=== PATIENT | female | born 1945 | race Caucasian/White ===

== ENCOUNTER 2017-07-11 10:13 | Inpatient (IN) | payer MEDICARE, OTHER ==
[~2017-07-11 10:13] MED LIST: SUCCINYLCHOLINE CHLORIDE INJ 200 MG/10 ML VIAL ONE
[2017-07-11] MEDS ORDERED: METHYLPREDNISOLONE INJ 125 MG/2 ML SDV IV ONE (10:20)
[2017-07-11] MEDS ORDERED: MAGNESIUM SULFATE/D5W 1 GM/100 ML RTUPB IV ONE (10:20)
[2017-07-11] MEDS ORDERED: IPRATROPIUM/ALBUTEROL 0.5-2.5 MG/3 ML AMPUL NEB ONE (10:20)
[2017-07-11 10:44] LABS: ABSOLUTE BASOPHILS # (AUTO) 0.1 10^3/uL (0.0-0.2); ABSOLUTE LYMPHOCYTES (AUTO) 1.5 10^3/uL (0.5-4.7); ABSOLUTE MONOCYTES (AUTO) 0.7 10^3/uL (0.1-1.4); ABSOLUTE NEUT (AUTO) 10.7 10^3/uL (1.7-8.2); BASOPHILS % (AUTO) 0.8 % (0-2); EOSINOPHILS % (AUTO) 0.1 % (0-6); HEMATOCRIT 37.6 % (36.0-47.0); HEMOGLOBIN 11.6 g/dL (12.0-15.5); LYMPHOCYTES % (AUTO) 11.3 % (13-45); MEAN CORPUSCULAR HEMOGLOBIN 24.1 pg (27.0-33.4); MEAN CORPUSCULAR HGB CONC 30.8 g/dL (32.0-36.0); MEAN CORPUSCULAR VOLUME 79 fl (80-97); MONOCYTES % (AUTO) 5.4 % (3-13); PLATELET COUNT 339 10^3/uL (150-450); RED BLOOD COUNT 4.79 10^6/uL (3.72-5.28); SEGMENTED NEUTROPHILS % (AUTO) 82.4 % (42-78); TOTAL CELLS COUNTED % (AUTO) 100 %
[2017-07-11 10:46] LABS: VENOUS BLOOD BASE EXCESS 2.4 mmol/L; VENOUS BLOOD HCO3 33.3 mmol/L (20-32)
[2017-07-11 10:49] LABS: VENOUS BLOOD PCO2 91.1 mmHg (35-63); VENOUS BLOOD PH 7.18 (7.30-7.42)
[2017-07-11 11:05] LABS: ALANINE AMINOTRANSFERASE 39 U/L (9-52); ALBUMIN 3.7 g/dL (3.5-5.0); ALKALINE PHOSPHATASE 82 U/L (38-126); ANION GAP 9 (5-19); ASPARTATE AMINO TRANSFERASE 37 U/L (14-36); BILIRUBIN,DIRECT 0.5 mg/dL (0.0-0.4); BILIRUBIN,TOTAL 0.5 mg/dL (0.2-1.3); BLOOD UREA NITROGEN 46 mg/dL (7-20); CALCIUM 9.2 mg/dL (8.4-10.2); CARBON DIOXIDE 28 mmol/L (22-30); CHLORIDE 98 mmol/L (98-107); CREATINE KINASE 73 U/L (30-135); GLUCOSE 369 mg/dL (75-110); LIPASE 76.7 U/L (23-300); MAGNESIUM 2.2 mg/dL (1.6-2.3); POTASSIUM 5.4 mmol/L (3.6-5.0); SODIUM 134.9 mmol/L (137-145); TOTAL PROTEIN 6.4 g/dL (6.3-8.2)
[2017-07-11 11:18] LABS: CREATINE KINASE MB 1.17 ng/mL (<4.55)
[2017-07-11 11:20] LABS: TROPONIN I 0.057 ng/mL
[2017-07-11 11:43] LABS: A TYPE INFLUENZA AG NEGATIVE (NEGATIVE); B INFLUENZA AG NEGATIVE (NEGATIVE)
--- NOTE | 2017-07-11 12:16 | RADIOLOGY REPORT (SQ) ---
EXAM DESCRIPTION: CTA CHEST COMPLETED DATE/TIME: 07/11/2017 11:59 am REASON FOR STUDY: sob COMPARISON: None. TECHNIQUE: CT scan of the chest performed using helical scanning technique with dynamic intravenous contrast injection. Images reviewed with lung, soft tissue and bone windows. Reconstructed coronal and sagittal MPR images reviewed. Additional 3 dimensional post-processing performed to develop Maximal Intensity Projection images (AK P). All images stored on PACS. All CT scanners at this facility use dose modulation, iterative reconstruction, and/or weight based d osing when appropriate to reduce radiation dose to as low as reasonably achievable (ALARA). [facility]: Dose Right [facility]: CareDose [facility]: Dose Right [facility]: Teradose 4D [facility]: [email or web address] CONTRAST TYPE AND DOSE: contrast/concentration: Isovue 370.00 mg/ml; Total Contrast Delivered: 82.0 ml; Total Saline Delivered: 80.0 ml Contrast bolus optimized for the pulmonary arteries. Not diagnostic for the aorta. RENAL FUNCTION: Creatinine 1.07 RADIATION DOSE: CT Rad equipment meets quality standard of care and radiation dose reduction techniq ues were employed. CTDIvol: 3.3 - 34.4 mGy. DLP: 1270 mGy-cm. . LIMITATIONS: None. FINDINGS: LUNGS AND PLEURA: No masses, infiltrates, pneumothorax. No pleural effusions, calcificati ons. AORTA AND GREAT VESSELS: No aneurysm. Contrast bolus not optimized for the aorta. HEART: No pericardial effusion. No significant coronary artery calcifications. PULMONARY ARTERIES: No emboli visualized in the main pulmonary arteries or the segmental branches. HILAR AND MEDIASTINAL STRUCTURES: No identified masses or abnormal nodes. HARDWARE: None in the chest. UPPER ABDOMEN: No significant findings. Limited exam. THYROID AND OTHER SOFT TISSUES: No masses. No adenopathy. BONES: No acute or significant finding. 3D MIPS: Confirm above findings. OTHER: No other significant finding. IMPRESSION: NORMAL CTA OF THE CHEST. NO PULMONARY EMBOLI. COMMENT: Quality ID # [id number]: Final reports with documentation of one or more dose reduction techniques (e.g., Automated exposure control, adjustment of the mA and/or kV according to patient size, use of iterative reconstruction technique) TECHNICAL DOCUMENTATION: JOB ID: [id number] [employer]- All Rights Reserved
[2017-07-11 12:24] LABS: APPEARANCE,URINE SLIGHTLY-CLOUDY; BILIRUBIN,URINE NEGATIVE (NEGATIVE); COLOR,URINE YELLOW; GLUCOSE, URINE 150 mg/dL (NEGATIVE); KETONES,URINE NEGATIVE (NEGATIVE); LEUKOCYTE ESTERASE,URINE SMALL (NEGATIVE); NITRITE,URINE NEGATIVE (NEGATIVE); PROTEIN,URINE >=500 mg/dL (NEGATIVE); URINE SPECIFIC GRAVITY 1.024; UROBILINOGEN,URINE NEGATIVE mg/dL (<2.0)
--- NOTE | 2017-07-11 12:38 | ER Document Report ---
ED General - General Chief Complaint: Shortness Of Breath Stated Complaint: SHORTNESS OF BREATH Time Seen by Provider: 07/11/17 10:19 TRAVEL OUTSIDE OF THE [place] IN LAST 30 DAYS: No - HPI Patient complains to provider of: Shortness of breath Notes: Patient coming in for evaluation of shortness of breath. Patient has a history of chronic smoking patient according EMS called EMS out day prior to arrival refuse treatment at the breathing treatments. Patient presented to the continue to smoke coming in today for increased respiratory distress. Patient also recently was on a cruise returning to the area patient denies any fevers or chills productive cough. Patient is on CPAP upon my evaluation we did monitor the patient briefly after taking patient off CPAP however continues to have increased accessory muscle use therefore transitioned to BiPAP. Patient denies any pain - Related Data Allergies/Adverse Reactions: hydrogen peroxide [Hydrogen Peroxide] Allergy (Verified 07/11/17 10:54) bee sting Allergy (Uncoded 07/11/17 10:54) Past Medical History - Social History Smoking Status: Current Every Day Smoker Family History: Reviewed & Not Pertinent Patient has suicidal ideation: No Patient has homicidal ideation: No - Past Medical History Cardiac Medical History: Reports: Hx Atrial Fibrillation, Hx Hypercholesterolemia, Hx Hypertension Pulmonary Medical History: Reports: Hx Asthma Endocrine Medical History: Reports: Hx Diabetes Mellitus Type 2 Renal/ Medical History: Denies: Hx Peritoneal Dialysis Past Surgical History: Reports: Hx Appendectomy, Hx Cholecystectomy, Hx Hysterectomy Review of Systems - Review of Systems Constitutional: No symptoms reported EENT: No symptoms reported Cardiovascular: No symptoms reported Respiratory: Short of breath, Wheezing Gastrointestinal: No symptoms reported Genitourinary: No symptoms reported Female Genitourinary: No symptoms reported Musculoskeletal: No symptoms reported Skin: No symptoms reported Hematologic/Lymphatic: No symptoms reported Neurological/Psychological: No symptoms reported Physical Exam - Vital signs Vitals: Pulse Ox 92 07/11/17 10:16 Interpretation: Normal, Hypoxic, Tachypneic - General General appearance: Alert, Other - Mild to moderate distress In distress: Moderate - HEENT Head: Normocephalic, Atraumatic Eyes: Normal Conjunctiva: Normal Cornea: Normal Pupils: PERRL - Respiratory Respiratory status: Respiratory distress Chest status: Nontender Breath sounds: Rhonchi, Wheezing Chest palpation: Normal - Cardiovascular Rhythm: Regular Heart sounds: Normal auscultation Murmur: No - Abdominal Inspection: Normal Distension: No distension Bowel sounds: Normal Tenderness: Nontender Organomegaly: No organomegaly - Back Back: Normal, Nontender - Extremities General upper extremity: Normal inspection, Nontender, Normal color, Normal ROM , Normal temperature General lower extremity: Normal inspection, Nontender, Normal color, Normal ROM , Normal temperature, Normal weight bearing. No: Marisela's sign - Neurological Neuro grossly intact: Yes Cognition: Normal Orientation: AAOx4 Elisabeth Coma Scale Eye Opening: Spontaneous Elisabeth Coma Scale Verbal: Oriented Elisabeth Coma Scale Motor: Obeys Commands [place] Coma Scale Total: 15 Speech: Normal Motor strength normal: LUE, RUE, LLE, RLE Sensory: Normal - Psychological Associated symptoms: Normal affect, Normal mood - Skin Skin Temperature: Warm Skin Moisture: Dry Skin Color: Normal Course - Re-evaluation Re-evalutation: 07/11/17 15:41 Patient better with BiPAP. Patient's initial VBG showed acute respiratory distress with hypercapnia. Continue with BiPAP continue nebulized treatments with steroids. Patient case was discussed with hospitalist will admit for further evaluation - Vital Signs Vital signs: Temp Pulse Resp BP Pulse Ox 98.7 F 17 126/69 H 94 07/11/17 10:53 07/11/17 14:41 07/11/17 14:41 07/11/17 14:41 - Laboratory Result Diagrams: 07/11/17 10:25 07/11/17 10:25 Laboratory results interpreted by me: 07/11/17 07/11/17 07/11/17 10:25 10:25 10:25 WBC 13.0 H Hgb 11.6 L MCV 79 L MCH 24.1 L MCHC 30.8 L RDW 16.0 H Seg Neutrophils % 82.4 H Lymphocytes % 11.3 L Absolute Neutrophils 10.7 H VBG pH VBG pCO2 VBG HCO3 Sodium 134.9 L Potassium 5.4 H BUN 46 H Est GFR (Non-Af Amer) 50 L Glucose 369 H Direct Bilirubin 0.5 H AST 37 H NT-Pro-B Natriuret Pep 6320 H Urine Protein Urine Glucose (UA) Ur Leukocyte Esterase 07/11/17 07/11/17 10:25 12:09 WBC Hgb MCV MCH MCHC RDW Seg Neutrophils % Lymphocytes % Absolute Neutrophils VBG pH 7.18 L* VBG pCO2 91.1 H* VBG HCO3 33.3 H Sodium Potassium BUN Est GFR (Non-Af Amer) Glucose Direct Bilirubin AST NT-Pro-B Natriuret Pep Urine Protein >=500 H Urine Glucose (UA) 150 H Ur Leukocyte Esterase SMALL H Critical Care Note - Critical Care Note Total time excluding time spent on procedures (mins): 35 Comments: Multiple evaluation patient respiratory distress requiring BiPAP Discharge - Discharge Clinical Impression: COPD with exacerbation, Acute respiratory failure with hypoxia and hypercapnia , Right leg swelling Atrial fibrillation Qualifiers: Atrial fibrillation type: chronic Qualified Code(s): I48.2 - Chronic atrial fibrillation Condition: Fair Disposition: ADMITTED INPATIENT Admitting Provider: Hospitalist - [facility] Unit Admitted: [facility]
--- NOTE | 2017-07-11 13:14 | EKG REPORT ---
SEVERITY:- ABNORMAL ECG - ATRIAL FIBRILLATION, V-RATE 63-95 BORDERLINE R WAVE PROGRESSION, ANTERIOR LEADS NONSPECIFIC T ABNORMALITIES, DIFFUSE LEADS : Confirmed by: Mary Ellen Bejarano MD 11-Jul-2017 13:13:56
[2017-07-11 13:52] LABS: ARTERIAL BLOOD BASE EXCESS 1.3 mmol/L; ARTERIAL BLOOD H2CO3 3.01 mmol/L (1.05-1.35); ARTERIAL BLOOD HCO3 33.2 mmol/L (20-26); ARTERIAL BLOOD O2 SATURATION 89.4 % (94-98); ARTERIAL BLOOD PO2 75.4 mmHg (80-100); ARTERIAL BLOOD TOTAL CO2 36.3 mmol/L (21-25)
[2017-07-11 13:57] LABS: ARTERIAL BLOOD PCO2 100.1 mmHg (35-45); ARTERIAL BLOOD PH 7.14 (7.35-7.45)
[2017-07-11] MEDS ORDERED: ACETAMINOPHEN 325 MG TABLET PO PRN (14:02)
[2017-07-11] MEDS ORDERED: ONDANSETRON HCL INJ/PF 4 MG/2 ML SDV IV PRN (14:02)
[2017-07-11] MEDS ORDERED: GLUCAGON,HUMAN RECOMB 1 MG INJ IM PRN (14:15)
[2017-07-11] MEDS ORDERED: DEXTROSE 50%-WATER 25 GM/50 ML DISP.SYRIN IV PRN ×2 (14:15)
[2017-07-11] MEDS ORDERED: DEXTROSE 40% GEL 15 GM TUBE PO PRN ×2 (14:15)
--- NOTE | 2017-07-11 14:36 | PDOC H&P ---
History of Present Illness Admission Date/PCP: 07/11/17 13:02 LAMIN SAGASTUME NP Patient complains of: Confusion and Acute Respiratory Failure History of Present Illness: MEGAN RODRIGUEZ is a 72 year old female present with complaint of confusion and difficulty breathing. Not able to obtain history from patient due to patient being unresponsive. Patient was still sternal rub and would move arms and open eyes. The third time patient with sternal rub patient stated that it hurt. Patient's ER nurse was contacted immediately to find out if this is how patient has been the whole entire time and nurse stated that patient had been drowsy from the beginning however not as drowsy as this. Stat ABG was ordered and ER physician was contacted in regards to patient's condition. Patient will be admitted to ICU for close observation with pulmonary consult placed will adjust patient's BiPAP settings to see if CO2 will trend down if not patient most likely will require intubation. Unable to obtain history of presenting illness from patient or family. Past Medical History Past Medical History: Obtained by ER Cardiac Medical History: Reports: Atrial Fibrillation, Hyperlipidema, Hypertension Pulmonary Medical History: Reports: Asthma Endocrine Medical History: Reports: Diabetes Mellitus Type 2 Past Surgical History Past Surgical History: Obtained by ER Past Surgical History: Reports: Appendectomy, Cholecystectomy, Hysterectomy Social History Information Source: Emergency Med Personnel Smoking Status: Current Every Day Smoker Frequency of Alcohol Use: Rare Hx Recreational Drug Use: No Drugs: None Hx Prescription Drug Abuse: No - Advance Directive Resuscitation Status: Full Code Family History Family History: Reviewed & Not Pertinent Parental Family History Reviewed: No - Pt would only respond to painful stimuli. Children Family History Reviewed: Unknown Sibling(s) Family History Reviewed.: Unknown Medication/Allergy Home Medications: [facility] [place] Vitamin 1 tab PO DAILY 09/04/15 RX: Albuterol Sulfate [Proair Respiclick] 2 puff IH Q4H PRN 09/04/15 RX: Aspirin 81 mg PO DAILY 09/04/15 RX: Diltiazem HCl [Diltiazem 24Hr ER] 360 mg PO DAILY 09/04/15 RX: Docusate Sodium [Colace 100 mg Capsule] 100 mg PO QHS 09/04/15 RX: Epinephrine [Epipen 2-Robb] 0.3 mg IM ASDIR PRN 09/04/15 RX: Glucosamine/MSM/Chondroitin A [Glucosamine Chondroit MSM Tab] 1 each PO BID 09/04/15 RX: Loratadine [Claritin 10 mg Tablet] 10 mg PO DAILY 09/04/15 RX: Magnesium Oxide [Mag-Ox 400 mg Tablet] 500 mg PO DAILY 09/04/15 RX: [place]-3 Fatty Acids/Fish Oil [Fish Oil Conc 1,000 mg Softgel] 1 each PO BID 09/04/15 RX: Sitagliptin Phos/Metformin HCl [Janumet 50-1,000 mg Tablet] 1 each PO BID RX: Ubidecarenone [Coenzyme Q10] 100 mg PO DAILY 09/04/15 Atorvastatin Calcium [Lipitor 40 mg Tablet] 40 mg PO QHS 07/11/17 Calcium Carbonate/Vitamin D3 [Calcium 500 + Vit D 200 Caplet] 1 tab-cap PO DAILY 07/11/17 Chlorthalidone [Chlorthalidone 25 mg Tablet] 1 tab PO DAILY 07/11/17 Cholecalciferol (Vitamin D3) [Vitamin D3 1000 Unit Tablet] 1,000 unit PO DAILY 07/11/17 Insulin Glargine,Hum.rec.anlog [Lantus] 44 unit SQ DAILY 07/11/17 Multivit,Calc,Mins/Folic Acid [One-A-Day Proactive 65 Plus Tb] 200 mcg PO DAILY 07/11/17 Allergies/Adverse Reactions: hydrogen peroxide [Hydrogen Peroxide] Allergy (Verified 07/11/17 10:54) bee sting Allergy (Uncoded 07/11/17 10:54) Review of Systems ROS unobtainable: Due to mental status Physical Exam Vital Signs: Temp Pulse Resp BP Pulse Ox 98.7 F 16 135/62 H 92 07/11/17 10:53 07/11/17 13:41 07/11/17 13:41 07/11/17 13:41 General appearance: PRESENT: disheveled, well-developed, well-nourished, other - BIPAP in place Head exam: PRESENT: atraumatic, normocephalic Eye exam: PRESENT: other - Pt would open eyes with painful stimuli. Ear exam: PRESENT: normal external ear exam Mouth exam: PRESENT: moist, tongue midline Neck exam: ABSENT: carotid bruit, JVD, lymphadenopathy, thyromegaly Respiratory exam: PRESENT: other - + prolonged exp phase, + wheezing, + BIPAP in place Cardiovascular exam: PRESENT: irregular rhythm, other - + right leg + 1 pitting edema. ABSENT: diastolic murmur, rubs, systolic murmur Pulses: PRESENT: normal dorsalis pedis pul Vascular exam: PRESENT: normal capillary refill GI/Abdominal exam: PRESENT: normal bowel sounds, soft. ABSENT: distended, guarding, mass, organolmegaly, rebound, tenderness Rectal exam: PRESENT: deferred Extremities exam: PRESENT: full ROM. ABSENT: calf tenderness, clubbing, pedal edema Neurological exam: PRESENT: other - Will respond to painful stimuli, Pt opened eyes and moved arms, and said stop. Skin exam: PRESENT: dry, intact, warm. ABSENT: cyanosis, rash Results Laboratory Results: 07/11/17 13:30 Carbonic Acid 3.01 H HCO3/H2CO3 Ratio 11:1 ABG pH 7.14 L* ABG pCO2 100.1 H* ABG pO2 75.4 L ABG HCO3 33.2 H ABG O2 Saturation 89.4 L ABG Base Excess 1.3 FiO2 55% Impressions: Chest/Abdomen CTA 07/11/17 10:19 IMPRESSION: NORMAL CTA OF THE CHEST. NO PULMONARY EMBOLI. Assessment & Plan - Diagnosis (1) Acute respiratory failure with hypoxia and hypercapnia Is this a current diagnosis for this admission?: Yes Plan: Patient at time of ER visit had an venous blood gas performed. Patient later had a ABG done which demonstrated respiratory acidosis with a CO2 of 100. Patient's BiPAP settings were adjusted and will recheck ABG in an hour. If no improvement will have patient intubated. Pulmonary has been consulted to assist with patient care. (2) COPD with exacerbation Is this a current diagnosis for this admission?: Yes Plan: We will place patient on steroids, breathing treatments, and Levaquin. We will have pulmonary evaluate patient as well. If patient's ABG does not improve we will have patient intubated. (3) CO2 narcosis Is this a current diagnosis for this admission?: Yes Plan: Patient on BiPAP settings have been readjusted if CO2 does not improve will intubate patient. (4) Hyponatremia Is this a current diagnosis for this admission?: Yes Plan: Most likely secondary to thiazide: We will hold thiazide. (5) Delirium Is this a current diagnosis for this admission?: Yes Plan: Secondary CO2 Narcosis: Patient BiPAP settings have been readjusted will check ABG in 1 hour. ABG has not improved will intubate patient. (6) Hyperkalemia Is this a current diagnosis for this admission?: Yes Plan: We will monitor no intervention required at this time will check BMP in a.m. (7) DM type 2 (diabetes mellitus, type 2) Qualifiers: Diabetes mellitus complication status: with hyperglycemia Is this a current diagnosis for this admission?: Yes Plan: We will place patient on sliding scale insulin. Will check hemoglobin A1c. (8) Atrial fibrillation Qualifiers: Atrial fibrillation type: chronic Qualified Code(s): I48.2 - Chronic atrial fibrillation Is this a current diagnosis for this admission?: Yes Plan: We will continue patient's diltiazem and aspirin. Will ask pharmacy to verify patient's medications due to patient not being on an oral anticoagulant. (9) Right leg swelling Plan: Ultrasound of right lower extremity pending. In the meantime we will place patient on DVT prophylaxis. If study demonstrates evidence of a DVT will place on treatment protocol. (10) Hyperlipidemia Is this a current diagnosis for this admission?: Yes Plan: We will continue statin (11) DVT prophylaxis Is this a current diagnosis for this admission?: Yes Plan: Heparin - Time Time Spent: 50 to 70 Minutes - We will place patient in ICU.
--- NOTE | 2017-07-11 16:01 | RADIOLOGY REPORT (SQ) ---
EXAM DESCRIPTION: VENOUS UNILATERAL LOWER COMPLETED DATE/TIME: 07/11/2017 3:48 pm REASON FOR STUDY: pain right leg COMPARISON: None. TECHNIQUE: Dynamic and static blackwood scale and color images acquired of the right leg venous system. S elected spectral images acquired with additional compression and augmentation maneuvers. The contrala teral common femoral vein and saphenofemoral junction were also imaged. Images stored on PACS. LIMITATIONS: None. FINDINGS: COMMON FEMORAL: Normal phasicity, compression and augmentation. No visualized echogenic ma terial on blackwood scale. No defects on color images. FEMORAL: Normal compression and augmentation. No visualized echogenic material on blackwood scale. No defe cts on color images. POPLITEAL: Normal compression, augmentation. No visualized echogenic material on blackwood scale. No defec ts on color images. CALF VESSELS: Normal compression, augmentation. No visualized echogenic material on blackwood scale. No de fects on color images. GSV and SSV: Normal compression, augmentation. No visualized echogenic material on blackwood scale. No def ects on color images. ANY DEEP VENOUS INSUFFICIENCY: No. ANY EVIDENCE OF POPLITEAL CYST: No. OTHER: No other significant finding. CONTRALATERAL COMMON FEMORAL VEIN AND SAPHENOFEMORAL JUNCTION: Normal phasicity, compression and augmentation. No visualized echogenic material on blackwood scale. No de fects on color images. IMPRESSION: NO EVIDENCE DVT OR SVT IN THE RIGHT LEG. COMMENT: Preliminary report was called by the technologist to the referring clinician's office at th e time of patient visit. TECHNICAL DOCUMENTATION: JOB ID: [id number] [employer]- All Rights Reserved
[2017-07-11] MEDS: IPRATROPIUM/ALBUTEROL 0.5-2.5 MG/3 ML AMPUL NEB SCH ×3 (16:20→23:39)
[2017-07-11 17:38] LABS: ARTERIAL BLOOD BASE EXCESS 1.9 mmol/L; ARTERIAL BLOOD H2CO3 2.68 mmol/L (1.05-1.35); ARTERIAL BLOOD HCO3 32.8 mmol/L (20-26); ARTERIAL BLOOD PO2 83.9 mmHg (80-100); ARTERIAL BLOOD TOTAL CO2 35.5 mmol/L (21-25)
[2017-07-11 17:43] LABS: ARTERIAL BLOOD PCO2 89.2 mmHg (35-45); ARTERIAL BLOOD PH 7.18 (7.35-7.45)
[2017-07-11] MEDS: METHYLPREDNISOLONE INJ 125 MG/2 ML SDV IV SCH (18:13)
[2017-07-11] MEDS: INSULIN REG, HUMAN 100 UNIT/ML 3 ML VIAL (PYX) SUBCUT PRN (18:25)
[2017-07-11 19:54] LABS: ARTERIAL BLOOD BASE EXCESS 2.8 mmol/L; ARTERIAL BLOOD H2CO3 2.79 mmol/L (1.05-1.35); ARTERIAL BLOOD HCO3 33.9 mmol/L (20-26); ARTERIAL BLOOD O2 SATURATION 94.2 % (94-98); ARTERIAL BLOOD PO2 90.8 mmHg (80-100); ARTERIAL BLOOD TOTAL CO2 36.8 mmol/L (21-25)
[2017-07-11 19:57] LABS: ARTERIAL BLOOD FIO2 60%
[2017-07-11 19:59] LABS: ARTERIAL BLOOD PH 7.18 (7.35-7.45)
[2017-07-11 20:00] LABS: ARTERIAL BLOOD PCO2 92.8 mmHg (35-45)
[2017-07-11] MEDS ORDERED: SUCCINYLCHOLINE CHLORIDE INJ 200 MG/10 ML VIAL IV ONE (20:19)
[2017-07-11] MEDS ORDERED: ETOMIDATE INJ/PF 20 MG/10 ML SDV IV ONE ×2 (20:19→20:22)
[2017-07-11] MEDS ORDERED: PROPOFOL 100 ML IV PRN (20:19)
[2017-07-11] MEDS ORDERED: PROPOFOL 100 ML IV ONE (20:21)
[2017-07-11] MEDS: PROPOFOL 100 ML IV PRN ×2 (22:29→23:13)
--- NOTE | 2017-07-11 22:59 | RADIOLOGY REPORT (SQ) ---
EXAM DESCRIPTION: CHEST SINGLE VIEW COMPLETED DATE/TIME: 07/11/2017 10:39 pm REASON FOR STUDY: post intubation COMPARISON: None. EXAM PARAMETERS: NUMBER OF VIEWS: One view. TECHNIQUE: Single frontal radiographic view of the chest acquired. RADIATION DOSE: NA LIMITATIONS: Multiple overlapping metallic leads on the upper mediastinum. FINDINGS: LUNGS AND PLEURA: No pneumothorax. Mild subsegmental atelectasis in the left lung base. No significant pleural effusion. MEDIASTINUM AND HILAR STRUCTURES: No masses. Contour normal. HEART AND VASCULAR STRUCTURES: Heart normal in size. Normal vasculature. BONES: No acute findings. HARDWARE: Endotracheal tube tip overlies the mid trachea, poorly localized due to overlapping metalli c leads on the upper mediastinum. Nasogastric catheter tip overlies the pyloric region of the stomac h. OTHER: No other significant finding. IMPRESSION: Endotracheal tube tip overlies the mid trachea, poorly localized due to overlapping meta llic leads on the upper mediastinum. Nasogastric catheter tip overlies the pyloric region of the sto mach. Mild subsegmental atelectasis in the left lung base. TECHNICAL DOCUMENTATION: JOB ID: [id number] [email or web address]- All Rights Reserved
--- NOTE | 2017-07-11 23:12 | ER Document Report ---
Doctor's Note Notes: 07/11/17 23:10 I was asked to intubate the patient as she had worsening respiratory failure with increasing hypercapnia. Patient was confused and cannot give me further consent. Using a glide scope on a single attempt, and 8.0 endotracheal tube was placed with direct visualization of the cords. Cuff inflated. Breath sounds were equal bilaterally. Good end-tidal CO2 color change. Follow-up x- ray difficult to interpret but appears to have good tube placement. There is left effusion/infiltrate noted. RSI was used which included etomidate 20 mg, succinylcholine 100 mg IV with continued sedation with propofol infusion..
[2017-07-12] MEDS ORDERED: INFLUENZA ADLT QUAD (36MOS+) 2017-18 VAC 0.5 ML SYR IM PRN (01:07)
[2017-07-12 01:10] LABS: ARTERIAL BLOOD BASE EXCESS 1.6 mmol/L; ARTERIAL BLOOD H2CO3 1.87 mmol/L (1.05-1.35); ARTERIAL BLOOD HCO3 29.3 mmol/L (20-26); ARTERIAL BLOOD O2 SATURATION 96.9 % (94-98); ARTERIAL BLOOD PCO2 62.1 mmHg (35-45); ARTERIAL BLOOD PH 7.29 (7.35-7.45); ARTERIAL BLOOD PO2 101.9 mmHg (80-100); ARTERIAL BLOOD TOTAL CO2 31.2 mmol/L (21-25)
[2017-07-12 01:11] LABS: ARTERIAL BLOOD FIO2 60%
[2017-07-12] MEDS: PANTOPRAZOLE SODIUM 40 MG VIAL IV SCH ×3 (01:20→22:25)
[2017-07-12] MEDS: HEPARIN SOD (PORCINE) 5,000 UNIT/ML 1 ML SYRINGE SUBCUT SCH ×4 (01:21→22:24)
[2017-07-12] MEDS: METHYLPREDNISOLONE INJ 125 MG/2 ML SDV IV SCH ×4 (01:21→17:35)
[2017-07-12] MEDS: ATORVASTATIN CALCIUM 40 MG TABLET PO SCH ×2 (01:21→22:24)
[2017-07-12] MEDS: PROPOFOL 100 ML IV PRN ×6 (02:22→20:43)
[2017-07-12 02:25] LABS: HEMATOCRIT 36.3 % (36.0-47.0); HEMOGLOBIN 11.2 g/dL (12.0-15.5); MEAN CORPUSCULAR HEMOGLOBIN 24.1 pg (27.0-33.4); MEAN CORPUSCULAR HGB CONC 30.8 g/dL (32.0-36.0); MEAN CORPUSCULAR VOLUME 78 fl (80-97); PLATELET COUNT 297 10^3/uL (150-450); RED BLOOD COUNT 4.64 10^6/uL (3.72-5.28); RED CELL DISTRIBUTION WIDTH 16.2 % (11.5-14.0); WHITE BLOOD COUNT 13.3 10^3/uL (4.0-10.5)
[2017-07-12 02:41] LABS: ALANINE AMINOTRANSFERASE 41 U/L (9-52); ALBUMIN 3.3 g/dL (3.5-5.0); ALKALINE PHOSPHATASE 83 U/L (38-126); ANION GAP 9 (5-19); ASPARTATE AMINO TRANSFERASE 24 U/L (14-36); BILIRUBIN,DIRECT 0.4 mg/dL (0.0-0.4); BILIRUBIN,TOTAL 0.4 mg/dL (0.2-1.3); BLOOD UREA NITROGEN 49 mg/dL (7-20); CALCIUM 8.8 mg/dL (8.4-10.2); CARBON DIOXIDE 26 mmol/L (22-30); CHLORIDE 100 mmol/L (98-107); GLUCOSE 371 mg/dL (75-110); POTASSIUM 5.5 mmol/L (3.6-5.0); SODIUM 135.2 mmol/L (137-145); TOTAL PROTEIN 5.8 g/dL (6.3-8.2)
[2017-07-12 03:01] LABS: ABSOLUTE LYMPHOCYTES# (MANUAL) 1.1 10^3/uL (0.5-4.7); ABSOLUTE MONOCYTES # (MANUAL) 0.7 10^3/uL (0.1-1.4); ABSOLUTE NEUTROPHILS# (MANUAL) 11.6 10^3/uL (1.7-8.2); BAND NEUTROPHILS % (MANUAL) 2 % (3-5); BASOPHILS % (MANUAL) 0 % (0-2); EOSINOPHILS % (MANUAL) 0 % (0-6); LYMPHOCYTES % (MANUAL) 8 % (13-45); MONOCYTES % (MANUAL) 5 % (3-13); SEGMENTED NEUTROPHILS % (MAN) 85 % (42-78); TOTAL CELLS COUNTED 100
[2017-07-12 03:02] LABS: ANISOCYTOSIS 1+; BURR CELLS SLIGHT; HYPOCHROMASIA SLIGHT; OVALOCYTES SLIGHT; POIKILOCYTOSIS SLIGHT; POLYCHROMASIA SLIGHT; TOXIC GRANULATION SLIGHT; TOXIC VACUOLATION PRESENT
[2017-07-12 03:03] LABS: PLATELET COMMENT ADEQUATE
[2017-07-12 03:12] LABS: FREE T4 (FREE THYROXINE) 1.18 ng/dL (0.78-2.19)
[2017-07-12 03:15] LABS: THYROID STIMULATING HORMONE 0.31 uIU/mL (0.47-4.68)
[2017-07-12] MEDS: IPRATROPIUM/ALBUTEROL 0.5-2.5 MG/3 ML AMPUL NEB SCH ×5 (04:23→19:45)
[2017-07-12] MEDS: NORMAL SALINE 1000 ML 1,000 ML IV PRN ×2 (04:46→13:20)
[2017-07-12] MEDS: INSULIN REG, HUMAN 100 UNIT/ML 3 ML VIAL (PYX) SUBCUT PRN ×2 (05:20→13:49)
[2017-07-12 06:29] LABS: ARTERIAL BLOOD BASE EXCESS 0 mmol/L; ARTERIAL BLOOD HCO3 27.2 mmol/L (20-26); ARTERIAL BLOOD O2 SATURATION 91.9 % (94-98); ARTERIAL BLOOD PCO2 56.6 mmHg (35-45); ARTERIAL BLOOD PO2 69.6 mmHg (80-100)
[2017-07-12 06:32] LABS: ARTERIAL BLOOD FIO2 45%
--- NOTE | 2017-07-12 06:49 | RADIOLOGY REPORT (SQ) ---
EXAM DESCRIPTION: CHEST SINGLE VIEW CLINICAL HISTORY: Pt intubated COMPARISON: 07/11/2017 FINDINGS: Single frontal view of the chest. Endotracheal tube with tip midway between the clavicles and malvin. NG tube with tip below the diaphragm. Cardiomegaly. Atherosclerotic calcification aortic arch. Low lung volumes. Minimal streaky basilar airspace opacity. Low lung volumes. No pneumothorax or pleural effusion. No new osseous abnormalities. Upper abdominal soft tissues are unremarkable. IMPRESSION: 1. No significant interval change.
--- NOTE | 2017-07-12 08:48 | EKG REPORT ---
SEVERITY:- ABNORMAL ECG - ATRIAL FIBRILLATION, V-RATE 64-109 CONSIDER ANTEROSEPTAL INFARCT NONSPECIFIC T ABNORMALITIES, INFERIOR LEADS : Confirmed by: Mary Ellen Bejarano MD 12-Jul-2017 08:47:00
[2017-07-12] MEDS: ASPIRIN 81 MG TABLET, CHEWABLE PO SCH (09:35)
[2017-07-12] MEDS: LEVOFLOXACIN 750 MG/D5W RTU 750 MG/150 ML RTUPB IV SCH (09:36)
[2017-07-12] MEDS ORDERED: (PENDING PHARMACY ID) (Diltiazem Hcl [Diltiazem 24hr Er] 360 MG) PO SCH (10:00)
[2017-07-12] MEDS ORDERED: DILTIAZEM HCL 180 MG CAPSULE.CR PO SCH (10:00)
[2017-07-12] MEDS ORDERED: DILTIAZEM HCL 60 MG TABLET NG ONE (13:00)
--- NOTE | 2017-07-12 17:42 | PDOC PROGRESS REPORT ---
Subjective Progress Note for:: 07/12/17 Subjective:: No new issues. Reason For Visit: CO2 NARCOSIS ACUTE COPD EXACERBATION Physical Exam Vital Signs: Temp Pulse Resp BP Pulse Ox 100.0 F 92 22 H 132/68 H 92 07/12/17 16:00 07/12/17 16:34 07/12/17 16:34 07/12/17 16:00 07/12/17 16:34 Intake & Output 07/11/17 07/12/17 07/13/17 06:59 06:59 06:59 Intake Total 1005 Output Total 950 625 Balance 55 -625 Weight 97.1 kg General appearance: PRESENT: no acute distress, other - sedated Head exam: PRESENT: atraumatic, normocephalic Eye exam: PRESENT: other - sedated. ABSENT: scleral icterus Ear exam: PRESENT: normal external ear exam Mouth exam: PRESENT: moist, tongue midline Neck exam: ABSENT: carotid bruit, JVD, lymphadenopathy, thyromegaly Respiratory exam: PRESENT: wheezes. ABSENT: rales, rhonchi Cardiovascular exam: PRESENT: RRR. ABSENT: diastolic murmur, rubs, systolic murmur Pulses: PRESENT: normal dorsalis pedis pul Vascular exam: PRESENT: normal capillary refill GI/Abdominal exam: PRESENT: normal bowel sounds, soft. ABSENT: distended, guarding, mass, organolmegaly, rebound, tenderness Rectal exam: PRESENT: deferred Extremities exam: PRESENT: full ROM. ABSENT: calf tenderness, clubbing, pedal edema Neurological exam: PRESENT: other - sedated Psychiatric exam: PRESENT: other - sedated Skin exam: PRESENT: other - warm and dry, no wounds. Results Laboratory Results: 07/12/17 02:03 07/12/17 02:03 07/11/17 07/11/17 07/12/17 15:50 19:35 00:50 WBC RBC Hgb Hct MCV MCH MCHC RDW Plt Count Seg Neutrophils % Lymphocytes % Monocytes % Eosinophils % Basophils % Absolute Neutrophils Absolute Lymphocytes Absolute Monocytes Absolute Eosinophils Absolute Basophils Carbonic Acid 2.68 H 2.79 H 1.87 H HCO3/H2CO3 Ratio 12:1 12:1 15:1 ABG pH 7.18 L* 7.18 L* 7.29 L ABG pCO2 89.2 H* 92.8 H* 62.1 H ABG pO2 83.9 90.8 101.9 H ABG HCO3 32.8 H 33.9 H 29.3 H ABG O2 Saturation 93.0 L 94.2 96.9 ABG Base Excess 1.9 2.8 1.6 FiO2 55% 60% 60% Sodium Potassium Chloride Carbon Dioxide Anion Gap BUN Creatinine Est GFR ( Amer) Est GFR (Non-Af Amer) Glucose Calcium Total Bilirubin AST ALT Alkaline Phosphatase Total Protein Albumin Triglycerides TSH Free T4 07/12/17 07/12/17 07/12/17 02:03 02:03 02:03 WBC 13.3 H RBC 4.64 Hgb 11.2 L Hct 36.3 MCV 78 L MCH 24.1 L MCHC 30.8 L RDW 16.2 H Plt Count 297 Seg Neutrophils % Not Reportable Lymphocytes % Not Reportable Monocytes % Not Reportable Eosinophils % Not Reportable Basophils % Not Reportable Absolute Neutrophils Not Reportable Absolute Lymphocytes Not Reportable Absolute Monocytes Not Reportable Absolute Eosinophils Not Reportable Absolute Basophils Not Reportable Carbonic Acid HCO3/H2CO3 Ratio ABG pH ABG pCO2 ABG pO2 ABG HCO3 ABG O2 Saturation ABG Base Excess FiO2 Sodium 135.2 L Potassium 5.5 H Chloride 100 Carbon Dioxide 26 Anion Gap 9 BUN 49 H Creatinine 1.17 Est GFR ( Amer) 55 L Est GFR (Non-Af Amer) 45 L Glucose 371 H Calcium 8.8 Total Bilirubin 0.4 AST 24 ALT 41 Alkaline Phosphatase 83 Total Protein 5.8 L Albumin 3.3 L Triglycerides TSH 0.31 L Free T4 1.18 07/12/17 07/12/17 02:03 06:15 WBC RBC Hgb Hct MCV MCH MCHC RDW Plt Count Seg Neutrophils % Lymphocytes % Monocytes % Eosinophils % Basophils % Absolute Neutrophils Absolute Lymphocytes Absolute Monocytes Absolute Eosinophils Absolute Basophils Carbonic Acid 1.70 H HCO3/H2CO3 Ratio 16:1 ABG pH 7.30 L ABG pCO2 56.6 H ABG pO2 69.6 L ABG HCO3 27.2 H ABG O2 Saturation 91.9 L ABG Base Excess 0 FiO2 45% Sodium Potassium Chloride Carbon Dioxide Anion Gap BUN Creatinine Est GFR ( Amer) Est GFR (Non-Af Amer) Glucose Calcium Total Bilirubin AST ALT Alkaline Phosphatase Total Protein Albumin Triglycerides 336 H TSH Free T4 07/11/17 07/11/17 07/12/17 15:21 19:50 02:03 Troponin I 0.045 0.031 0.023 Impressions: Chest/Abdomen CTA 07/11/17 10:19 IMPRESSION: NORMAL CTA OF THE CHEST. NO PULMONARY EMBOLI. Venous Doppler Study 07/11/17 12:18 IMPRESSION: NO EVIDENCE DVT OR SVT IN THE RIGHT LEG. Chest X-Ray 07/12/17 06:00 IMPRESSION: 1. No significant interval change. Assessment & Plan - Diagnosis (1) Acute respiratory failure with hypoxia and hypercapnia Is this a current diagnosis for this admission?: Yes Plan: Regular COPD exacerbation. Patient is currently intubated and is stable. Attempt to wean patient was made today however was unsuccessful. (2) COPD with exacerbation Is this a current diagnosis for this admission?: Yes Plan: We will continue patient on steroids, breathing treatments, Levaquin. Patient is currently intubated. Appreciate pulmonary's assistance. (3) CO2 narcosis Is this a current diagnosis for this admission?: Yes Plan: S/P intubation: Resolved. (4) Hyponatremia Is this a current diagnosis for this admission?: Yes Plan: Secondary to Hyperglycemia: Will continue to monitor. (5) Delirium Is this a current diagnosis for this admission?: Yes Plan: Secondary CO2 Narcosis S/P intubated: Pt sedation. (6) Hyperkalemia Is this a current diagnosis for this admission?: Yes Plan: Will give Insulin. Will check in am. (7) DM type 2 (diabetes mellitus, type 2) Qualifiers: Diabetes mellitus complication status: with hyperglycemia Is this a current diagnosis for this admission?: Yes Plan: SSI. HBG A1C 8.4. (8) Atrial fibrillation Qualifiers: Atrial fibrillation type: chronic Qualified Code(s): I48.2 - Chronic atrial fibrillation Is this a current diagnosis for this admission?: Yes Plan: We will continue patient's diltiazem and aspirin. (9) Right leg swelling Is this a current diagnosis for this admission?: Yes Plan: Ultrasound of right lower extremity no evidence of DVT. (10) Hyperlipidemia Is this a current diagnosis for this admission?: Yes Plan: statin (11) DVT prophylaxis Is this a current diagnosis for this admission?: Yes Plan: Heparin
[2017-07-12] MEDS ORDERED: INSULIN REG, HUMAN 100 UNIT/ML 3 ML VIAL (PYX) SUBCUT ONE (19:00)
[2017-07-12] MEDS ORDERED: INSULIN GLARGINE,HUM.REC.ANLOG 300 UNIT/3 ML INSULN.PEN SUBCUT ONE (19:00)
[2017-07-12] MEDS: DILTIAZEM HCL 60 MG TABLET NG SCH (22:23)
[2017-07-13] MEDS: IPRATROPIUM/ALBUTEROL 0.5-2.5 MG/3 ML AMPUL NEB SCH ×6 (00:07→20:16)
[2017-07-13] MEDS ORDERED: INSULIN REG, HUMAN 100 UNIT/ML 3 ML VIAL (PYX) SUBCUT ONE ×3 (00:30→10:00)
[2017-07-13] MEDS: PROPOFOL 100 ML IV PRN ×7 (00:39→23:15)
[2017-07-13] MEDS: METHYLPREDNISOLONE INJ 125 MG/2 ML SDV IV SCH ×4 (00:40→22:04)
[2017-07-13] MEDS: NORMAL SALINE 1000 ML 1,000 ML IV PRN ×2 (03:26→18:31)
[2017-07-13 04:26] LABS: HEMATOCRIT 33.7 % (36.0-47.0); HEMOGLOBIN 10.5 g/dL (12.0-15.5); MEAN CORPUSCULAR HEMOGLOBIN 24.2 pg (27.0-33.4); MEAN CORPUSCULAR HGB CONC 31.3 g/dL (32.0-36.0); MEAN CORPUSCULAR VOLUME 78 fl (80-97); PLATELET COUNT 280 10^3/uL (150-450); RED BLOOD COUNT 4.34 10^6/uL (3.72-5.28); RED CELL DISTRIBUTION WIDTH 16.1 % (11.5-14.0)
[2017-07-13 04:52] LABS: ABSOLUTE LYMPHOCYTES# (MANUAL) 0.9 10^3/uL (0.5-4.7); ABSOLUTE MONOCYTES # (MANUAL) 0.5 10^3/uL (0.1-1.4); ABSOLUTE NEUTROPHILS# (MANUAL) 16.6 10^3/uL (1.7-8.2); ALANINE AMINOTRANSFERASE 34 U/L (9-52); ALBUMIN 3.1 g/dL (3.5-5.0); ALKALINE PHOSPHATASE 74 U/L (38-126); ANION GAP 10 (5-19); ASPARTATE AMINO TRANSFERASE 19 U/L (14-36); BAND NEUTROPHILS % (MANUAL) 1 % (3-5); BASOPHILS % (MANUAL) 0 % (0-2); BILIRUBIN,DIRECT 0.3 mg/dL (0.0-0.4); BILIRUBIN,TOTAL 0.3 mg/dL (0.2-1.3); BLOOD UREA NITROGEN 53 mg/dL (7-20); CALCIUM 8.5 mg/dL (8.4-10.2); CARBON DIOXIDE 27 mmol/L (22-30); CHLORIDE 102 mmol/L (98-107); EOSINOPHILS % (MANUAL) 0 % (0-6); LYMPHOCYTES % (MANUAL) 5 % (13-45); MAGNESIUM 2.8 mg/dL (1.6-2.3); MONOCYTES % (MANUAL) 3 % (3-13); POTASSIUM 4.6 mmol/L (3.6-5.0); SEGMENTED NEUTROPHILS % (MAN) 91 % (42-78); SODIUM 138.9 mmol/L (137-145); TOTAL CELLS COUNTED 100; TOTAL PROTEIN 5.6 g/dL (6.3-8.2)
[2017-07-13 04:53] LABS: ANISOCYTOSIS 1+; PLATELET COMMENT ADEQUATE; POLYCHROMASIA SLIGHT; TOXIC VACUOLATION PRESENT
[2017-07-13 05:02] LABS: GLUCOSE 439 mg/dL (75-110)
[2017-07-13] MEDS: DILTIAZEM HCL 60 MG TABLET NG SCH ×3 (05:16→22:03)
[2017-07-13] MEDS: HEPARIN SOD (PORCINE) 5,000 UNIT/ML 1 ML SYRINGE SUBCUT SCH ×3 (05:16→22:04)
[2017-07-13 06:43] LABS: ARTERIAL BLOOD BASE EXCESS 2.1 mmol/L; ARTERIAL BLOOD H2CO3 1.75 mmol/L (1.05-1.35); ARTERIAL BLOOD HCO3 29.2 mmol/L (20-26); ARTERIAL BLOOD O2 SATURATION 94.2 % (94-98); ARTERIAL BLOOD PH 7.32 (7.35-7.45); ARTERIAL BLOOD PO2 77.6 mmHg (80-100)
[2017-07-13 06:47] LABS: ARTERIAL BLOOD FIO2 45%
--- NOTE | 2017-07-13 06:50 | RADIOLOGY REPORT (SQ) ---
EXAM DESCRIPTION: CHEST SINGLE VIEW CLINICAL HISTORY: Intubated patient COMPARISON: 07/12/2017 FINDINGS: Single frontal view of the chest. Endotracheal tube with tip midway between the clavicles and malvin. NG tube with tip below the diaphragm. Cardiomegaly. Atherosclerotic calcification of the aortic arch. Low lung volumes. Minimal streaky basilar airspace opacity. Low lung volumes. No pneumothorax or pleural effusion. No new osseous abnormalities. Upper abdominal soft tissues are unremarkable. IMPRESSION: 1. No significant interval change. Electronically signed by: Anam Cloud 07/13/2017 5:48 AM
[2017-07-13] MEDS: LEVOFLOXACIN 750 MG/D5W RTU 750 MG/150 ML RTUPB IV SCH (09:13)
[2017-07-13] MEDS: ASPIRIN 81 MG TABLET, CHEWABLE PO SCH (09:28)
[2017-07-13] MEDS: PANTOPRAZOLE SODIUM 40 MG VIAL IV SCH ×2 (09:57→22:04)
[2017-07-13] MEDS ORDERED: INSULIN GLARGINE,HUM.REC.ANLOG 300 UNIT/3 ML INSULN.PEN SUBCUT SCH (10:00)
--- NOTE | 2017-07-13 11:42 | PDOC PROGRESS REPORT ---
Subjective Progress Note for:: 07/13/17 Subjective:: Nursing reports the patient's blood sugars have been in the 400s. Patient is off sedation is able to follow commands and nod yes and no to questions. Reason For Visit: CO2 NARCOSIS ACUTE COPD EXACERBATION Physical Exam Vital Signs: Temp Pulse Resp BP Pulse Ox 99.1 F 96 20 140/61 H 84 L 07/13/17 08:00 07/13/17 10:00 07/13/17 10:14 07/13/17 10:14 07/13/17 10:14 Intake & Output 07/12/17 07/13/17 07/14/17 06:59 06:59 06:59 Intake Total 1005 2450 Output Total 950 1465 360 Balance 55 985 -360 Weight 97.1 kg 97.5 kg General appearance: PRESENT: other - ETT in place, Eye open and following commands Head exam: PRESENT: atraumatic, normocephalic Eye exam: PRESENT: conjunctiva pink, EOMI Ear exam: PRESENT: normal external ear exam Mouth exam: PRESENT: moist, tongue midline Neck exam: ABSENT: carotid bruit, JVD, lymphadenopathy, thyromegaly Respiratory exam: PRESENT: wheezes, other - Patient with wheezing and diminished breath sounds at bases Cardiovascular exam: PRESENT: RRR. ABSENT: diastolic murmur, rubs, systolic murmur Pulses: PRESENT: normal dorsalis pedis pul Vascular exam: PRESENT: normal capillary refill GI/Abdominal exam: PRESENT: normal bowel sounds, soft. ABSENT: distended, guarding, mass, organolmegaly, rebound, tenderness Rectal exam: PRESENT: deferred Extremities exam: PRESENT: full ROM. ABSENT: calf tenderness, clubbing, pedal edema Neurological exam: PRESENT: alert, awake, oriented to person, oriented to place , oriented to time, oriented to situation, CN II-XII grossly intact. ABSENT: motor sensory deficit Psychiatric exam: PRESENT: appropriate affect, normal mood. ABSENT: homicidal ideation, suicidal ideation Skin exam: PRESENT: dry, intact, warm. ABSENT: cyanosis, rash Results Laboratory Results: 07/13/17 04:12 07/13/17 04:12 07/13/17 07/13/17 07/13/17 04:12 04:12 06:05 WBC 18.0 H RBC 4.34 Hgb 10.5 L Hct 33.7 L MCV 78 L MCH 24.2 L MCHC 31.3 L RDW 16.1 H Plt Count 280 Seg Neutrophils % Not Reportable Lymphocytes % Not Reportable Monocytes % Not Reportable Eosinophils % Not Reportable Basophils % Not Reportable Absolute Neutrophils Not Reportable Absolute Lymphocytes Not Reportable Absolute Monocytes Not Reportable Absolute Eosinophils Not Reportable Absolute Basophils Not Reportable Carbonic Acid 1.75 H HCO3/H2CO3 Ratio 16:1 ABG pH 7.32 L ABG pCO2 58.0 H ABG pO2 77.6 L ABG HCO3 29.2 H ABG O2 Saturation 94.2 ABG Base Excess 2.1 FiO2 45% Sodium 138.9 Potassium 4.6 Chloride 102 Carbon Dioxide 27 Anion Gap 10 BUN 53 H Creatinine 1.10 Est GFR ( Amer) 59 L Est GFR (Non-Af Amer) 49 L Glucose 439 H* Calcium 8.5 Magnesium 2.8 H Total Bilirubin 0.3 AST 19 ALT 34 Alkaline Phosphatase 74 Total Protein 5.6 L Albumin 3.1 L 07/11/17 07/11/17 07/12/17 15:21 19:50 02:03 Troponin I 0.045 0.031 0.023 Impressions: Chest/Abdomen CTA 07/11/17 10:19 IMPRESSION: NORMAL CTA OF THE CHEST. NO PULMONARY EMBOLI. Venous Doppler Study 07/11/17 12:18 IMPRESSION: NO EVIDENCE DVT OR SVT IN THE RIGHT LEG. Chest X-Ray 07/13/17 06:00 IMPRESSION: 1. No significant interval change. Assessment & Plan - Diagnosis (1) Acute respiratory failure with hypoxia and hypercapnia Is this a current diagnosis for this admission?: Yes Plan: Secondary COPD exacerbation. Hopefully patient will be extubated today. We will continue steroids, antibiotics, and breathing treatments (2) COPD with exacerbation Is this a current diagnosis for this admission?: Yes Plan: We will continue patient on steroids, breathing treatments, Levaquin. Appreciate pulmonary's assistance. Patient appears to be doing well following questions appropriately hoping that patient will be extubated today and transition to BiPAP. (3) CO2 narcosis Is this a current diagnosis for this admission?: Yes Plan: S/P intubation: Resolved. (4) Hyponatremia Is this a current diagnosis for this admission?: Yes Plan: Secondary to Hyperglycemia: Will continue to monitor. (5) Delirium Is this a current diagnosis for this admission?: Yes Plan: Secondary CO2 Narcosis S/P intubated: Off sedation this morning. Pt nodding head yes and no appropriately. (6) Hyperkalemia Is this a current diagnosis for this admission?: Yes Plan: Will check blood glucose again. Pt was given additional Humalog 25 units SQ X 1. Will increase Lantus to 40 units SC qdaily. (7) DM type 2 (diabetes mellitus, type 2) Qualifiers: Diabetes mellitus complication status: with hyperglycemia Is this a current diagnosis for this admission?: Yes Plan: SSI. Will increase Lantus 40 units SQ daily. HBG A1C 8.4. (8) Atrial fibrillation Qualifiers: Atrial fibrillation type: chronic Qualified Code(s): I48.2 - Chronic atrial fibrillation Is this a current diagnosis for this admission?: Yes Plan: We will continue patient's diltiazem and aspirin. (9) Right leg swelling Is this a current diagnosis for this admission?: Yes Plan: Ultrasound of right lower extremity no evidence of DVT. (10) Hyperlipidemia Is this a current diagnosis for this admission?: Yes Plan: statin (11) DVT prophylaxis Is this a current diagnosis for this admission?: Yes Plan: Heparin - Time Time Spent with patient: 25-34 minutes
[2017-07-13] MEDS: INSULIN REG, HUMAN 100 UNIT/ML 3 ML VIAL (PYX) SUBCUT PRN ×2 (12:35→18:31)
[2017-07-13] MEDS: ATORVASTATIN CALCIUM 40 MG TABLET PO SCH (22:03)
[2017-07-14] MEDS: INSULIN REG, HUMAN 100 UNIT/ML 3 ML VIAL (PYX) SUBCUT PRN ×4 (00:26→18:46)
[2017-07-14] MEDS: PROPOFOL 100 ML IV PRN ×2 (01:53→04:55)
[2017-07-14] MEDS: IPRATROPIUM/ALBUTEROL 0.5-2.5 MG/3 ML AMPUL NEB SCH ×6 (03:53→20:50)
[2017-07-14 04:06] LABS: HEMATOCRIT 35.3 % (36.0-47.0); HEMOGLOBIN 10.8 g/dL (12.0-15.5); MEAN CORPUSCULAR HEMOGLOBIN 23.7 pg (27.0-33.4); MEAN CORPUSCULAR HGB CONC 30.8 g/dL (32.0-36.0); MEAN CORPUSCULAR VOLUME 77 fl (80-97); PLATELET COUNT 297 10^3/uL (150-450); RED BLOOD COUNT 4.58 10^6/uL (3.72-5.28); RED CELL DISTRIBUTION WIDTH 16.3 % (11.5-14.0)
[2017-07-14 04:19] LABS: ANION GAP 7 (5-19); BLOOD UREA NITROGEN 36 mg/dL (7-20); CALCIUM 8.6 mg/dL (8.4-10.2); CARBON DIOXIDE 28 mmol/L (22-30); CHLORIDE 105 mmol/L (98-107); GLUCOSE 321 mg/dL (75-110); MAGNESIUM 2.6 mg/dL (1.6-2.3); POTASSIUM 4.1 mmol/L (3.6-5.0); SODIUM 139.6 mmol/L (137-145)
[2017-07-14 04:34] LABS: ABSOLUTE LYMPHOCYTES# (MANUAL) 0.7 10^3/uL (0.5-4.7); ABSOLUTE MONOCYTES # (MANUAL) 0.3 10^3/uL (0.1-1.4); BASOPHILS % (MANUAL) 0 % (0-2); EOSINOPHILS % (MANUAL) 0 % (0-6); LYMPHOCYTES % (MANUAL) 4 % (13-45); MONOCYTES % (MANUAL) 2 % (3-13); SEGMENTED NEUTROPHILS % (MAN) 93 % (42-78); TOTAL CELLS COUNTED 100
[2017-07-14 04:38] LABS: ANISOCYTOSIS 1+; BURR CELLS 1+; OVALOCYTES SLIGHT; PLATELET CLUMPS PRESENT; PLATELET COMMENT ADEQUATE; PLATELET GIANT PRESENT; PLATELET LARGE PRESENT; POIKILOCYTOSIS 1+; SCHISTOCYTES SLIGHT; TEAR DROP CELLS SLIGHT; TOXIC GRANULATION 1+
[2017-07-14 04:40] LABS: MYELOCYTES % (MANUAL) 1 % (0)
[2017-07-14] MEDS: DILTIAZEM HCL 60 MG TABLET NG SCH ×3 (05:00→23:44)
[2017-07-14] MEDS: METHYLPREDNISOLONE INJ 125 MG/2 ML SDV IV SCH ×3 (05:01→23:46)
[2017-07-14] MEDS: HEPARIN SOD (PORCINE) 5,000 UNIT/ML 1 ML SYRINGE SUBCUT SCH ×3 (05:01→23:47)
[2017-07-14 06:37] LABS: ARTERIAL BLOOD BASE EXCESS 2.3 mmol/L; ARTERIAL BLOOD H2CO3 1.46 mmol/L (1.05-1.35); ARTERIAL BLOOD O2 SATURATION 90.4 % (94-98); ARTERIAL BLOOD PCO2 48.5 mmHg (35-45); ARTERIAL BLOOD PH 7.38 (7.35-7.45); ARTERIAL BLOOD PO2 60.2 mmHg (80-100); ARTERIAL BLOOD TOTAL CO2 29.5 mmol/L (21-25)
[2017-07-14 06:38] LABS: ARTERIAL BLOOD FIO2 45%
--- NOTE | 2017-07-14 07:13 | RADIOLOGY REPORT (SQ) ---
EXAM DESCRIPTION: CHEST SINGLE VIEW CLINICAL HISTORY: resp failure COMPARISON: 07/13/2017 FINDINGS: Single frontal view of the chest. Endotracheal tube with tip midway between the clavicles and malvin. NG tube with tip below the diaphragm. Cardiomegaly. Atherosclerotic calcification of the aortic arch. Low lung volumes. Minimal streaky basilar airspace opacity. Low lung volumes. No pneumothorax or pleural effusion. No new osseous abnormalities. Upper abdominal soft tissues are unremarkable. IMPRESSION: 1. No significant interval change. Electronically signed by: Anam Cloud 07/14/2017 6:12 AM OBSTETRICS NURSE PRACTITIONER
[2017-07-14] MEDS: NORMAL SALINE 1000 ML 1,000 ML IV PRN (08:41)
[2017-07-14] MEDS: LEVOFLOXACIN 750 MG/D5W RTU 750 MG/150 ML RTUPB IV SCH (10:37)
[2017-07-14] MEDS: PANTOPRAZOLE SODIUM 40 MG VIAL IV SCH (10:39)
[2017-07-14] MEDS: ASPIRIN 81 MG TABLET, CHEWABLE PO SCH (10:39)
[2017-07-14] MEDS: INSULIN GLARGINE,HUM.REC.ANLOG 300 UNIT/3 ML INSULN.PEN SUBCUT SCH (10:40)
[2017-07-14 12:22] LABS: PATH REVIEW PATHOLOGIST REVIEWED
--- NOTE | 2017-07-14 18:40 | PDOC PROGRESS REPORT ---
Subjective Progress Note for:: 07/14/17 Subjective:: Pt states that she is doing ok. Pt was extubated this morning. Reason For Visit: CO2 NARCOSIS ACUTE COPD EXACERBATION Physical Exam Vital Signs: Temp Pulse Resp BP Pulse Ox 98.8 F 74 23 H 146/77 H 99 07/14/17 16:47 07/14/17 16:47 07/14/17 16:47 07/14/17 16:47 07/14/17 16:47 Intake & Output 07/13/17 07/14/17 07/15/17 06:59 06:59 06:59 Intake Total 2450 2382 Output Total 1465 2120 1300 Balance 985 262 -1300 Weight 97.5 kg 97.9 kg General appearance: PRESENT: no acute distress, well-developed, well-nourished Head exam: PRESENT: atraumatic, normocephalic Eye exam: PRESENT: conjunctiva pink, EOMI. ABSENT: scleral icterus Ear exam: PRESENT: normal external ear exam Mouth exam: PRESENT: moist, tongue midline Neck exam: ABSENT: carotid bruit, JVD, lymphadenopathy, thyromegaly Respiratory exam: PRESENT: accessory muscle use, prolonged expiratory phas, wheezes, other - BIPAP in placement. Cardiovascular exam: PRESENT: RRR. ABSENT: diastolic murmur, rubs, systolic murmur Pulses: PRESENT: normal dorsalis pedis pul Vascular exam: PRESENT: normal capillary refill GI/Abdominal exam: PRESENT: normal bowel sounds, soft. ABSENT: distended, guarding, mass, organolmegaly, rebound, tenderness Rectal exam: PRESENT: deferred Extremities exam: PRESENT: full ROM. ABSENT: calf tenderness, clubbing, pedal edema Musculoskeletal exam: PRESENT: full ROM Neurological exam: PRESENT: alert, awake, oriented to person, oriented to place , oriented to time, oriented to situation, CN II-XII grossly intact. ABSENT: motor sensory deficit Psychiatric exam: PRESENT: appropriate affect, normal mood. ABSENT: homicidal ideation, suicidal ideation Skin exam: PRESENT: dry, intact, warm. ABSENT: cyanosis, rash Results Laboratory Results: 07/14/17 03:52 07/14/17 03:52 07/14/17 07/14/17 07/14/17 03:52 03:52 06:20 WBC 17.0 H RBC 4.58 Hgb 10.8 L Hct 35.3 L MCV 77 L MCH 23.7 L MCHC 30.8 L RDW 16.3 H Plt Count 297 Seg Neutrophils % Not Reportable Lymphocytes % Not Reportable Monocytes % Not Reportable Eosinophils % Not Reportable Basophils % Not Reportable Absolute Neutrophils Not Reportable Absolute Lymphocytes Not Reportable Absolute Monocytes Not Reportable Absolute Eosinophils Not Reportable Absolute Basophils Not Reportable Carbonic Acid 1.46 H HCO3/H2CO3 Ratio 19:1 ABG pH 7.38 ABG pCO2 48.5 H ABG pO2 60.2 L ABG HCO3 28.0 H ABG O2 Saturation 90.4 L ABG Base Excess 2.3 FiO2 45% Sodium 139.6 Potassium 4.1 Chloride 105 Carbon Dioxide 28 Anion Gap 7 BUN 36 H Creatinine 0.92 Est GFR ( Amer) > 60 Est GFR (Non-Af Amer) > 60 Glucose 321 H Calcium 8.6 Magnesium 2.6 H 07/12/17 06:15 Tracheal Aspirate Gram Stain - Final 07/11/17 07/11/17 07/12/17 15:21 19:50 02:03 Troponin I 0.045 0.031 0.023 Impressions: Chest/Abdomen CTA 07/11/17 10:19 IMPRESSION: NORMAL CTA OF THE CHEST. NO PULMONARY EMBOLI. Venous Doppler Study 07/11/17 12:18 IMPRESSION: NO EVIDENCE DVT OR SVT IN THE RIGHT LEG. Chest X-Ray 07/14/17 06:00 IMPRESSION: 1. No significant interval change. Assessment & Plan - Diagnosis (1) Acute respiratory failure with hypoxia and hypercapnia Is this a current diagnosis for this admission?: Yes Plan: Secondary COPD exacerbation S/P Extubated: Pt currently doing well. Pt on BIPAP. will continue current treatment. Pt place pt on Q6 duonebs and change steroids to Q12 hours. (2) COPD with exacerbation Is this a current diagnosis for this admission?: Yes Plan: Will space breathing treatments and steroids. Will continue antibiotics. (3) CO2 narcosis Is this a current diagnosis for this admission?: Yes Plan: S/P Extubated: Resolved. (4) Hyponatremia Is this a current diagnosis for this admission?: Yes Plan: Secondary to Hyperglycemia: Resolved. (5) Delirium Is this a current diagnosis for this admission?: Yes Plan: Secondary CO2 Narcosis S/P Extubated: resolved. (6) Hyperkalemia Is this a current diagnosis for this admission?: Yes Plan: Resolved (7) DM type 2 (diabetes mellitus, type 2) Qualifiers: Diabetes mellitus complication status: with hyperglycemia Is this a current diagnosis for this admission?: Yes Plan: SSI. Will continue Lantus 40 units SQ daily. HBG A1C 8.4. (8) Atrial fibrillation Qualifiers: Atrial fibrillation type: chronic Qualified Code(s): I48.2 - Chronic atrial fibrillation Is this a current diagnosis for this admission?: Yes Plan: We will continue patient's diltiazem and aspirin. (9) Right leg swelling Is this a current diagnosis for this admission?: Yes Plan: Ultrasound of right lower extremity no evidence of DVT. (10) Hyperlipidemia Is this a current diagnosis for this admission?: Yes Plan: statin (11) DVT prophylaxis Is this a current diagnosis for this admission?: Yes Plan: Heparin - Time Time Spent with patient: 25-34 minutes
[2017-07-14] MEDS ORDERED: ZOLPIDEM TARTRATE 5 MG TABLET ONE (23:43)
[2017-07-14] MEDS: ATORVASTATIN CALCIUM 40 MG TABLET PO SCH (23:45)
[2017-07-14] MEDS ORDERED: ZOLPIDEM TARTRATE 5 MG TABLET PO ONE (23:45)
[2017-07-15] MEDS: INSULIN REG, HUMAN 100 UNIT/ML 3 ML VIAL (PYX) SUBCUT PRN ×2 (01:51→09:27)
[2017-07-15] MEDS: IPRATROPIUM/ALBUTEROL 0.5-2.5 MG/3 ML AMPUL NEB SCH ×4 (02:12→20:33)
[2017-07-15 04:29] LABS: HEMATOCRIT 35.7 % (36.0-47.0); MEAN CORPUSCULAR HEMOGLOBIN 23.8 pg (27.0-33.4); MEAN CORPUSCULAR HGB CONC 30.7 g/dL (32.0-36.0); MEAN CORPUSCULAR VOLUME 77 fl (80-97); PLATELET COUNT 277 10^3/uL (150-450); RED BLOOD COUNT 4.62 10^6/uL (3.72-5.28); WHITE BLOOD COUNT 17.7 10^3/uL (4.0-10.5)
[2017-07-15 04:43] LABS: ALANINE AMINOTRANSFERASE 29 U/L (9-52); ALBUMIN 3.3 g/dL (3.5-5.0); ALKALINE PHOSPHATASE 66 U/L (38-126); ANION GAP 6 (5-19); ASPARTATE AMINO TRANSFERASE 24 U/L (14-36); BILIRUBIN,DIRECT 0.3 mg/dL (0.0-0.4); BILIRUBIN,TOTAL 0.3 mg/dL (0.2-1.3); BLOOD UREA NITROGEN 33 mg/dL (7-20); CALCIUM 8.7 mg/dL (8.4-10.2); CARBON DIOXIDE 33 mmol/L (22-30); CHLORIDE 104 mmol/L (98-107); GLUCOSE 329 mg/dL (75-110); PHOSPHORUS 3.7 mg/dL (2.5-4.5); POTASSIUM 4.4 mmol/L (3.6-5.0); SODIUM 142.5 mmol/L (137-145); TRIGLYCERIDES 162 mg/dL (<150)
[2017-07-15 04:53] LABS: ABSOLUTE LYMPHOCYTES# (MANUAL) 0.2 10^3/uL (0.5-4.7); ABSOLUTE MONOCYTES # (MANUAL) 0.5 10^3/uL (0.1-1.4); BASOPHILS % (MANUAL) 0 % (0-2); EOSINOPHILS % (MANUAL) 0 % (0-6); LYMPHOCYTES % (MANUAL) 1 % (13-45); MONOCYTES % (MANUAL) 3 % (3-13); SEGMENTED NEUTROPHILS % (MAN) 96 % (42-78); TOTAL CELLS COUNTED 100
[2017-07-15 04:56] LABS: ANISOCYTOSIS SLIGHT; HYPOCHROMASIA 1+; OVALOCYTES SLIGHT; POIKILOCYTOSIS 1+; POLYCHROMASIA SLIGHT; TOXIC VACUOLATION PRESENT
[2017-07-15 04:57] LABS: PLATELET COMMENT ADEQUATE
[2017-07-15] MEDS: DILTIAZEM HCL 60 MG TABLET NG SCH ×3 (06:18→21:58)
[2017-07-15] MEDS: HEPARIN SOD (PORCINE) 5,000 UNIT/ML 1 ML SYRINGE SUBCUT SCH ×3 (06:18→21:58)
[2017-07-15 06:24] LABS: ARTERIAL BLOOD BASE EXCESS 6.1 mmol/L; ARTERIAL BLOOD H2CO3 1.57 mmol/L (1.05-1.35); ARTERIAL BLOOD HCO3 31.9 mmol/L (20-26); ARTERIAL BLOOD O2 SATURATION 93.9 % (94-98); ARTERIAL BLOOD PCO2 52.1 mmHg (35-45); ARTERIAL BLOOD PH 7.41 (7.35-7.45); ARTERIAL BLOOD PO2 70.1 mmHg (80-100); ARTERIAL BLOOD TOTAL CO2 33.5 mmol/L (21-25)
[2017-07-15 06:30] LABS: ARTERIAL BLOOD FIO2 35%
--- NOTE | 2017-07-15 06:49 | RADIOLOGY REPORT (SQ) ---
EXAM DESCRIPTION: CHEST SINGLE VIEW CLINICAL HISTORY: Respiratory failure COMPARISON: 07/13/2017 FINDINGS: Single frontal view of the chest. Cardia megaly. Atherosclerotic calcification of the aortic arch. Interval removal of endotracheal tube and NG tube. Low lung volumes. Minimal streaky basilar airspace opacity. Low lung volumes. No pneumothorax or pleural effusion. No new osseous abnormalities. Upper abdominal soft tissues are unremarkable. IMPRESSION: 1. Interval removal of endotracheal tube and NG tube. Otherwise stable appearance of the chest.
[2017-07-15] MEDS ORDERED: METHYLPREDNISOLONE INJ 40 MG/1 ML SDV ONE (09:24)
[2017-07-15] MEDS: ASPIRIN 81 MG TABLET, CHEWABLE PO SCH (09:26)
[2017-07-15] MEDS: LEVOFLOXACIN 750 MG/D5W RTU 750 MG/150 ML RTUPB IV SCH (09:26)
[2017-07-15] MEDS: METHYLPREDNISOLONE INJ 125 MG/2 ML SDV IV SCH ×2 (09:26→21:58)
[2017-07-15] MEDS: INSULIN GLARGINE,HUM.REC.ANLOG 300 UNIT/3 ML INSULN.PEN SUBCUT SCH (09:27)
[2017-07-15] MEDS ORDERED: INSULIN GLARGINE,HUM.REC.ANLOG 300 UNIT/3 ML INSULN.PEN SUBCUT SCH (10:27)
--- NOTE | 2017-07-15 10:30 | PDOC PROGRESS REPORT ---
Subjective Progress Note for:: 07/15/17 Subjective:: Patient states that she is feeling better. Patient states her breathing is close to her baseline. Nursing states that she did well yesterday. Nurse states that overnight the call the nocturnal wrist because patient was complaining of not been able to sleep and she was given Ambien. Due to patient receiving Ambien patient had to wear BiPAP during the night due to desatting. Have told nurse not to give patient Ambien. Reason For Visit: CO2 NARCOSIS ACUTE COPD EXACERBATION Physical Exam Vital Signs: Temp Pulse Resp BP Pulse Ox 99.0 F 95 27 H 120/98 H 91 L 07/14/17 18:00 07/15/17 10:00 07/15/17 10:00 07/15/17 10:00 07/15/17 10:00 Intake & Output 07/14/17 07/15/17 07/16/17 06:59 06:59 06:59 Intake Total 2382 2257 177 Output Total 2120 3260 250 Balance 262 -1003 -73 Weight 97.9 kg 100 kg General appearance: PRESENT: no acute distress, well-developed, well-nourished Head exam: PRESENT: atraumatic, normocephalic Eye exam: PRESENT: conjunctiva pink, EOMI. ABSENT: scleral icterus Ear exam: PRESENT: normal external ear exam Mouth exam: PRESENT: dry mucosa Neck exam: ABSENT: carotid bruit, JVD, lymphadenopathy, thyromegaly Respiratory exam: PRESENT: other - Positive for prolonged expiratory phase, positive for accessory muscle use, positive for diminished breath sounds at bases, positive for fair air movement and anterior lobes Cardiovascular exam: PRESENT: RRR. ABSENT: diastolic murmur, rubs, systolic murmur Pulses: PRESENT: normal dorsalis pedis pul Vascular exam: PRESENT: normal capillary refill GI/Abdominal exam: PRESENT: normal bowel sounds, soft. ABSENT: distended, guarding, mass, organolmegaly, rebound, tenderness Rectal exam: PRESENT: deferred Extremities exam: PRESENT: full ROM. ABSENT: calf tenderness, clubbing, pedal edema Neurological exam: PRESENT: alert, awake, oriented to person, oriented to place , oriented to time, oriented to situation, CN II-XII grossly intact. ABSENT: motor sensory deficit Psychiatric exam: PRESENT: appropriate affect, normal mood. ABSENT: homicidal ideation, suicidal ideation Skin exam: PRESENT: dry, intact, warm. ABSENT: cyanosis, rash Results Laboratory Results: 07/15/17 04:13 07/15/17 04:13 07/15/17 07/15/17 07/15/17 04:13 04:13 06:07 WBC 17.7 H RBC 4.62 Hgb 11.0 L Hct 35.7 L MCV 77 L MCH 23.8 L MCHC 30.7 L RDW 16.0 H Plt Count 277 Seg Neutrophils % Not Reportable Lymphocytes % Not Reportable Monocytes % Not Reportable Eosinophils % Not Reportable Basophils % Not Reportable Absolute Neutrophils Not Reportable Absolute Lymphocytes Not Reportable Absolute Monocytes Not Reportable Absolute Eosinophils Not Reportable Absolute Basophils Not Reportable Carbonic Acid 1.57 H HCO3/H2CO3 Ratio 20:1 ABG pH 7.41 ABG pCO2 52.1 H ABG pO2 70.1 L ABG HCO3 31.9 H ABG O2 Saturation 93.9 L ABG Base Excess 6.1 FiO2 35% Sodium 142.5 Potassium 4.4 Chloride 104 Carbon Dioxide 33 H Anion Gap 6 BUN 33 H Creatinine 0.81 Est GFR ( Amer) > 60 Est GFR (Non-Af Amer) > 60 Glucose 329 H Calcium 8.7 Phosphorus 3.7 Total Bilirubin 0.3 AST 24 ALT 29 Alkaline Phosphatase 66 Total Protein 6.0 L Albumin 3.3 L Triglycerides 162 H 07/12/17 06:15 Tracheal Aspirate Gram Stain - Final 07/12/17 06:15 Tracheal Aspirate Sputum Culture - Final Streptococcus Pneumoniae Normal Margy Absent 07/11/17 07/11/17 07/12/17 15:21 19:50 02:03 Troponin I 0.045 0.031 0.023 Impressions: Chest/Abdomen CTA 07/11/17 10:19 IMPRESSION: NORMAL CTA OF THE CHEST. NO PULMONARY EMBOLI. Venous Doppler Study 07/11/17 12:18 IMPRESSION: NO EVIDENCE DVT OR SVT IN THE RIGHT LEG. Chest X-Ray 07/15/17 06:00 IMPRESSION: 1. Interval removal of endotracheal tube and NG tube. Otherwise stable appearance of the chest. Assessment & Plan - Diagnosis (1) Acute respiratory failure with hypoxia and hypercapnia Is this a current diagnosis for this admission?: Yes Plan: Secondary COPD exacerbation S/P Extubated: We will transfer patient to [facility]. Patient is doing very well. Discontinued Ambien. Will make sure it is very clear that patient is not to receive any sedatives. Pt currently doing well. Pt on BIPAP. will continue current treatment. Pt placed on Q6 duonebs and change steroids to Q12 hours. (2) COPD with exacerbation Is this a current diagnosis for this admission?: Yes Plan: We will continue Levaquin, duo nebs every 6 hours, steroids IV every 12 hours. (3) CO2 narcosis Is this a current diagnosis for this admission?: Yes Plan: S/P Extubated: Resolved. (4) Hyponatremia Is this a current diagnosis for this admission?: Yes Plan: Secondary to Hyperglycemia: Resolved. (5) Delirium Is this a current diagnosis for this admission?: Yes Plan: Secondary CO2 Narcosis S/P Extubated: resolved. (6) Hyperkalemia Is this a current diagnosis for this admission?: Yes Plan: Resolved (7) DM type 2 (diabetes mellitus, type 2) Qualifiers: Diabetes mellitus complication status: with hyperglycemia Is this a current diagnosis for this admission?: Yes Plan: SSI. Will increase Lantus to [address] daily [address] patient on is on insulin for meals. (8) Atrial fibrillation Qualifiers: Atrial fibrillation type: chronic Qualified Code(s): I48.2 - Chronic atrial fibrillation Is this a current diagnosis for this admission?: Yes Plan: We will continue patient's diltiazem and aspirin. (9) Right leg swelling Is this a current diagnosis for this admission?: Yes Plan: Ultrasound of right lower extremity no evidence of DVT. (10) Hyperlipidemia Is this a current diagnosis for this admission?: Yes Plan: statin (11) DVT prophylaxis Is this a current diagnosis for this admission?: Yes Plan: Heparin - Time Time Spent with patient: 25-34 minutes - Will transfer patient from ICU to [facility]
[2017-07-15] MEDS: INSULIN LISPRO 100 UNIT/ML 3 ML VIAL SUBCUT SCH ×2 (13:14→17:47)
[2017-07-15] MEDS: ATORVASTATIN CALCIUM 40 MG TABLET PO SCH (21:58)
[2017-07-15] MEDS ORDERED: ZOLPIDEM TARTRATE 5 MG TABLET PO SCH (22:00)
[2017-07-16] MEDS: IPRATROPIUM/ALBUTEROL 0.5-2.5 MG/3 ML AMPUL NEB SCH ×4 (02:15→20:05)
[2017-07-16 05:12] LABS: ARTERIAL BLOOD BASE EXCESS 8.7 mmol/L; ARTERIAL BLOOD H2CO3 1.74 mmol/L (1.05-1.35); ARTERIAL BLOOD HCO3 35.2 mmol/L (20-26); ARTERIAL BLOOD PCO2 57.7 mmHg (35-45); ARTERIAL BLOOD PO2 50.5 mmHg (80-100)
[2017-07-16 05:17] LABS: ARTERIAL BLOOD FIO2 32%
[2017-07-16] MEDS: DILTIAZEM HCL 60 MG TABLET NG SCH ×3 (05:48→21:45)
[2017-07-16] MEDS: HEPARIN SOD (PORCINE) 5,000 UNIT/ML 1 ML SYRINGE SUBCUT SCH ×3 (05:49→21:45)
[2017-07-16 06:39] LABS: HEMATOCRIT 37.4 % (36.0-47.0); HEMOGLOBIN 11.2 g/dL (12.0-15.5); MEAN CORPUSCULAR HEMOGLOBIN 23.3 pg (27.0-33.4); MEAN CORPUSCULAR VOLUME 78 fl (80-97); PLATELET COUNT 256 10^3/uL (150-450); RED BLOOD COUNT 4.82 10^6/uL (3.72-5.28); RED CELL DISTRIBUTION WIDTH 16.3 % (11.5-14.0); WHITE BLOOD COUNT 17.8 10^3/uL (4.0-10.5)
[2017-07-16 06:47] LABS: BLOOD UREA NITROGEN 31 mg/dL (7-20); CALCIUM 9.1 mg/dL (8.4-10.2); CHLORIDE 98 mmol/L (98-107); GLUCOSE 298 mg/dL (75-110); MAGNESIUM 2.3 mg/dL (1.6-2.3); POTASSIUM 4.5 mmol/L (3.6-5.0); SODIUM 139.1 mmol/L (137-145)
[2017-07-16 07:05] LABS: ANION GAP 7 (5-19); CARBON DIOXIDE 34 mmol/L (22-30)
[2017-07-16 07:18] LABS: ABSOLUTE LYMPHOCYTES# (MANUAL) 0.2 10^3/uL (0.5-4.7); ABSOLUTE MONOCYTES # (MANUAL) 0.9 10^3/uL (0.1-1.4); ABSOLUTE NEUTROPHILS# (MANUAL) 16.7 10^3/uL (1.7-8.2); BASOPHILS % (MANUAL) 0 % (0-2); EOSINOPHILS % (MANUAL) 0 % (0-6); LYMPHOCYTES % (MANUAL) 1 % (13-45); MONOCYTES % (MANUAL) 5 % (3-13); SEGMENTED NEUTROPHILS % (MAN) 94 % (42-78); TOTAL CELLS COUNTED 100
[2017-07-16 07:21] LABS: ANISOCYTOSIS 1+; HYPOCHROMASIA 2+; PLATELET COMMENT ADEQUATE; POLYCHROMASIA 1+
--- NOTE | 2017-07-16 08:00 | RADIOLOGY REPORT (SQ) ---
EXAM DESCRIPTION: CHEST SINGLE VIEW COMPLETED DATE/TIME: 07/16/2017 7:49 am REASON FOR STUDY: resp fail COMPARISON: None. EXAM PARAMETERS: NUMBER OF VIEWS: One view. TECHNIQUE: Single frontal radiographic view of the chest acquired. RADIATION DOSE: NA LIMITATIONS: None. FINDINGS: LUNGS AND PLEURA: Streaky density adjacent to left heart border could represent discoid at electasis. Otherwise lung maradiaga are clear. . MEDIASTINUM AND HILAR STRUCTURES: No masses. Contour normal. HEART AND VASCULAR STRUCTURES: Heart normal in size. Normal vasculature. BONES: No acute findings. HARDWARE: None in the chest. OTHER: Chest leads in place. . IMPRESSION: Left basilar discoid atelectasis. Otherwise, no acute disease. TECHNICAL DOCUMENTATION: JOB ID: [id number] [employer]- All Rights Reserved
[2017-07-16] MEDS: ASPIRIN 81 MG TABLET, CHEWABLE PO SCH (09:32)
[2017-07-16] MEDS: INSULIN LISPRO 100 UNIT/ML 3 ML VIAL SUBCUT PRN ×4 (09:32→23:58)
[2017-07-16] MEDS: INSULIN LISPRO 100 UNIT/ML 3 ML VIAL SUBCUT SCH ×3 (09:32→17:25)
[2017-07-16] MEDS: METHYLPREDNISOLONE INJ 125 MG/2 ML SDV IV SCH ×2 (09:32→21:45)
[2017-07-16] MEDS: LEVOFLOXACIN 750 MG/D5W RTU 750 MG/150 ML RTUPB IV SCH (09:38)
--- NOTE | 2017-07-16 18:17 | PDOC PROGRESS REPORT ---
Subjective Progress Note for:: 07/16/17 Subjective:: Patient states that her breathing has improved and that she would like to get out of bed in setting chair. Nursing reported that patient does not like to use BiPAP and requested that patient use BiPAP at least 4 hours twice a day. Contacted nurse to see if patient had placed BiPAP on and she had stated now Reason For Visit: CO2 NARCOSIS ACUTE COPD EXACERBATION Physical Exam Vital Signs: Temp Pulse Resp BP Pulse Ox 97.9 F 88 18 133/63 H 93 07/16/17 11:51 07/16/17 14:00 07/16/17 13:45 07/16/17 11:51 07/16/17 13:45 Intake & Output 07/15/17 07/16/17 07/17/17 06:59 06:59 06:59 Intake Total 2257 1259 100 Output Total 3260 2650 Balance -1003 -1391 100 Weight 100 kg 97.5 kg General appearance: PRESENT: mild distress, well-developed, well-nourished Head exam: PRESENT: atraumatic, normocephalic Eye exam: PRESENT: conjunctiva pink, EOMI. ABSENT: scleral icterus Ear exam: PRESENT: normal external ear exam Mouth exam: PRESENT: moist, tongue midline Neck exam: ABSENT: carotid bruit, JVD, lymphadenopathy, thyromegaly Respiratory exam: PRESENT: accessory muscle use, prolonged expiratory phas, wheezes. ABSENT: rales, rhonchi Cardiovascular exam: PRESENT: RRR. ABSENT: diastolic murmur, rubs, systolic murmur Pulses: PRESENT: normal dorsalis pedis pul Vascular exam: PRESENT: normal capillary refill GI/Abdominal exam: PRESENT: normal bowel sounds, soft. ABSENT: distended, guarding, mass, organolmegaly, rebound, tenderness Rectal exam: PRESENT: deferred Extremities exam: PRESENT: full ROM. ABSENT: calf tenderness, clubbing, pedal edema Neurological exam: PRESENT: alert, awake, oriented to person, oriented to place , oriented to time, oriented to situation, CN II-XII grossly intact. ABSENT: motor sensory deficit Psychiatric exam: PRESENT: appropriate affect, normal mood. ABSENT: homicidal ideation, suicidal ideation Skin exam: PRESENT: dry, intact, warm. ABSENT: cyanosis, rash Results Laboratory Results: 07/16/17 05:40 07/16/17 05:40 07/16/17 07/16/17 07/16/17 05:00 05:40 05:40 WBC 17.8 H RBC 4.82 Hgb 11.2 L Hct 37.4 MCV 78 L MCH 23.3 L MCHC 30.0 L RDW 16.3 H Plt Count 256 Seg Neutrophils % Not Reportable Lymphocytes % Not Reportable Monocytes % Not Reportable Eosinophils % Not Reportable Basophils % Not Reportable Absolute Neutrophils Not Reportable Absolute Lymphocytes Not Reportable Absolute Monocytes Not Reportable Absolute Eosinophils Not Reportable Absolute Basophils Not Reportable Carbonic Acid 1.74 H HCO3/H2CO3 Ratio 20:1 ABG pH 7.40 ABG pCO2 57.7 H ABG pO2 50.5 L ABG HCO3 35.2 H ABG O2 Saturation 85.0 L ABG Base Excess 8.7 FiO2 32% Sodium 139.1 Potassium 4.5 Chloride 98 Carbon Dioxide 34 H Anion Gap 7 BUN 31 H Creatinine 0.73 Est GFR ( Amer) > 60 Est GFR (Non-Af Amer) > 60 Glucose 298 H Calcium 9.1 Magnesium 2.3 07/11/17 15:21 Blood Blood Culture - Final NO GROWTH IN 5 DAYS 07/11/17 07/11/17 07/12/17 15:21 19:50 02:03 Troponin I 0.045 0.031 0.023 Impressions: Chest/Abdomen CTA 07/11/17 10:19 IMPRESSION: NORMAL CTA OF THE CHEST. NO PULMONARY EMBOLI. Venous Doppler Study 07/11/17 12:18 IMPRESSION: NO EVIDENCE DVT OR SVT IN THE RIGHT LEG. Chest X-Ray 07/16/17 06:00 IMPRESSION: Left basilar discoid atelectasis. Otherwise, no acute disease. Assessment & Plan - Diagnosis (1) Acute respiratory failure with hypoxia and hypercapnia Is this a current diagnosis for this admission?: Yes Plan: Secondary COPD exacerbation S/P Extubated: Patient encouraged to wear BiPAP however received refusing to wear BiPAP. Nurse states that she will speak with patient again the patient states that she will not wear it will readdress issue with patient. Patient's ABG was reviewed. (2) COPD with exacerbation Is this a current diagnosis for this admission?: Yes Plan: We will continue Levaquin, duo nebs every 6 hours, steroids IV every 12 hours. (3) CO2 narcosis Is this a current diagnosis for this admission?: Yes Plan: S/P Extubated: Resolved. (4) Hyponatremia Is this a current diagnosis for this admission?: Yes Plan: Secondary to Hyperglycemia: Resolved. (5) Delirium Is this a current diagnosis for this admission?: Yes Plan: Secondary CO2 Narcosis S/P Extubated: resolved. (6) Hyperkalemia Is this a current diagnosis for this admission?: Yes Plan: Resolved (7) DM type 2 (diabetes mellitus, type 2) Qualifiers: Diabetes mellitus complication status: with hyperglycemia Is this a current diagnosis for this admission?: Yes Plan: SSI. Will increase Lantus to 60 units subcu daily and and placed on NovoLog 10 units with meals. (8) Atrial fibrillation Qualifiers: Atrial fibrillation type: chronic Qualified Code(s): I48.2 - Chronic atrial fibrillation Is this a current diagnosis for this admission?: Yes Plan: We will continue patient's diltiazem and aspirin. (9) Right leg swelling Is this a current diagnosis for this admission?: Yes Plan: Ultrasound of right lower extremity no evidence of DVT. (10) Hyperlipidemia Is this a current diagnosis for this admission?: Yes Plan: statin (11) DVT prophylaxis Is this a current diagnosis for this admission?: Yes Plan: Heparin - Time Time Spent with patient: 15-24 minutes
[2017-07-16] MEDS: ATORVASTATIN CALCIUM 40 MG TABLET PO SCH (21:45)
[2017-07-17] MEDS: IPRATROPIUM/ALBUTEROL 0.5-2.5 MG/3 ML AMPUL NEB SCH ×4 (02:29→20:09)
[2017-07-17] MEDS: DILTIAZEM HCL 60 MG TABLET NG SCH ×3 (05:10→21:29)
[2017-07-17] MEDS: HEPARIN SOD (PORCINE) 5,000 UNIT/ML 1 ML SYRINGE SUBCUT SCH ×3 (05:10→21:29)
[2017-07-17 06:28] LABS: HEMATOCRIT 37.6 % (36.0-47.0); HEMOGLOBIN 11.5 g/dL (12.0-15.5); MEAN CORPUSCULAR HEMOGLOBIN 23.5 pg (27.0-33.4); MEAN CORPUSCULAR HGB CONC 30.6 g/dL (32.0-36.0); MEAN CORPUSCULAR VOLUME 77 fl (80-97); PLATELET COUNT 222 10^3/uL (150-450); RED CELL DISTRIBUTION WIDTH 15.8 % (11.5-14.0); WHITE BLOOD COUNT 13.2 10^3/uL (4.0-10.5)
[2017-07-17 06:46] LABS: ALANINE AMINOTRANSFERASE 42 U/L (9-52); ALKALINE PHOSPHATASE 60 U/L (38-126); ANION GAP 5 (5-19); ASPARTATE AMINO TRANSFERASE 25 U/L (14-36); BILIRUBIN,DIRECT 0.3 mg/dL (0.0-0.4); BILIRUBIN,TOTAL 0.6 mg/dL (0.2-1.3); BLOOD UREA NITROGEN 32 mg/dL (7-20); CALCIUM 9.3 mg/dL (8.4-10.2); CARBON DIOXIDE 39 mmol/L (22-30); CHLORIDE 94 mmol/L (98-107); GLUCOSE 219 mg/dL (75-110); POTASSIUM 4.6 mmol/L (3.6-5.0); SODIUM 138.4 mmol/L (137-145); TOTAL PROTEIN 5.4 g/dL (6.3-8.2)
[2017-07-17 06:59] LABS: ABSOLUTE LYMPHOCYTES# (MANUAL) 0.4 10^3/uL (0.5-4.7); ABSOLUTE MONOCYTES # (MANUAL) 0.4 10^3/uL (0.1-1.4); ABSOLUTE NEUTROPHILS# (MANUAL) 12.4 10^3/uL (1.7-8.2); BAND NEUTROPHILS % (MANUAL) 1 % (3-5); BASOPHILS % (MANUAL) 0 % (0-2); EOSINOPHILS % (MANUAL) 0 % (0-6); LYMPHOCYTES % (MANUAL) 3 % (13-45); MONOCYTES % (MANUAL) 3 % (3-13); NUCLEATED RED BLOOD CELLS 1 /100 WBC (0); SEGMENTED NEUTROPHILS % (MAN) 93 % (42-78); TOTAL CELLS COUNTED 100
[2017-07-17 07:01] LABS: ANISOCYTOSIS 1+; BURR CELLS 1+; OVALOCYTES 1+; POIKILOCYTOSIS 1+; TOXIC GRANULATION 2+
[2017-07-17 07:02] LABS: PLATELET COMMENT ADEQUATE; PLATELET LARGE PRESENT; SCHISTOCYTES 1+; TEAR DROP CELLS 1+
[2017-07-17] MEDS: INSULIN LISPRO 100 UNIT/ML 3 ML VIAL SUBCUT PRN ×3 (08:27→18:21)
[2017-07-17] MEDS: INSULIN LISPRO 100 UNIT/ML 3 ML VIAL SUBCUT SCH ×3 (08:27→18:21)
[2017-07-17] MEDS ORDERED: INSULIN GLARGINE,HUM.REC.ANLOG 300 UNIT/3 ML INSULN.PEN SUBCUT SCH (10:00)
[2017-07-17] MEDS: METHYLPREDNISOLONE INJ 125 MG/2 ML SDV IV SCH ×2 (10:26→21:29)
[2017-07-17] MEDS: INSULIN GLARGINE,HUM.REC.ANLOG 1,000 UNIT/10 ML UNIT SUBCUT SCH (10:26)
[2017-07-17] MEDS: LEVOFLOXACIN 750 MG/D5W RTU 750 MG/150 ML RTUPB IV SCH (10:27)
[2017-07-17] MEDS: ASPIRIN 81 MG TABLET, CHEWABLE PO SCH (10:27)
[2017-07-17 13:35] LABS: ARTERIAL BLOOD BASE EXCESS 12.3 mmol/L; ARTERIAL BLOOD H2CO3 1.49 mmol/L (1.05-1.35); ARTERIAL BLOOD HCO3 37.2 mmol/L (20-26); ARTERIAL BLOOD O2 SATURATION 97.2 % (94-98); ARTERIAL BLOOD PCO2 49.4 mmHg (35-45); ARTERIAL BLOOD PO2 87.5 mmHg (80-100); ARTERIAL BLOOD TOTAL CO2 38.7 mmol/L (21-25)
[2017-07-17 13:38] LABS: ARTERIAL BLOOD FIO2 35%
--- NOTE | 2017-07-17 17:09 | PDOC PROGRESS REPORT ---
Subjective Progress Note for:: 07/17/17 Subjective:: Patient was seen earlier this morning. Nursing states the patient has worn her BiPAP as requested. Patient states that she feels well and not having issues with wearing BiPAP. Spoke to nurse later on during the day and nurse states that she takes BiPAP off to have meals. Reason For Visit: CO2 NARCOSIS ACUTE COPD EXACERBATION Physical Exam Vital Signs: Temp Pulse Resp BP Pulse Ox 98.4 F 90 20 112/59 L 96 07/17/17 15:40 07/17/17 15:40 07/17/17 16:13 07/17/17 15:40 07/17/17 16:13 Intake & Output 07/16/17 07/17/17 07/18/17 06:59 06:59 06:59 Intake Total 1259 1574 Output Total 2650 1950 Balance -1391 -376 Weight 97.5 kg 95.4 kg General appearance: PRESENT: no acute distress, well-developed, well-nourished Head exam: PRESENT: atraumatic, normocephalic Eye exam: PRESENT: conjunctiva pink, EOMI. ABSENT: scleral icterus Ear exam: PRESENT: normal external ear exam Mouth exam: PRESENT: moist, tongue midline Neck exam: ABSENT: carotid bruit, JVD, lymphadenopathy, thyromegaly Respiratory exam: PRESENT: decreased breath sounds, other - Breath sounds heard anteriorly however diminished at bases bilaterally. No wheezing appreciated.. ABSENT: rales, rhonchi, wheezes Cardiovascular exam: PRESENT: RRR. ABSENT: diastolic murmur, rubs, systolic murmur Pulses: PRESENT: normal dorsalis pedis pul Vascular exam: PRESENT: normal capillary refill GI/Abdominal exam: PRESENT: normal bowel sounds, soft. ABSENT: distended, guarding, mass, organolmegaly, rebound, tenderness Rectal exam: PRESENT: deferred Extremities exam: PRESENT: full ROM. ABSENT: calf tenderness, clubbing, pedal edema Neurological exam: PRESENT: alert, awake, oriented to person, oriented to place , oriented to time, oriented to situation, CN II-XII grossly intact. ABSENT: motor sensory deficit Psychiatric exam: PRESENT: appropriate affect, normal mood. ABSENT: homicidal ideation, suicidal ideation Skin exam: PRESENT: dry, intact, warm. ABSENT: cyanosis, rash Results Laboratory Results: 07/17/17 05:40 07/17/17 05:40 07/17/17 07/17/17 07/17/17 05:40 05:40 13:05 WBC 13.2 H RBC 4.90 Hgb 11.5 L Hct 37.6 MCV 77 L MCH 23.5 L MCHC 30.6 L RDW 15.8 H Plt Count 222 Seg Neutrophils % Not Reportable Lymphocytes % Not Reportable Monocytes % Not Reportable Eosinophils % Not Reportable Basophils % Not Reportable Absolute Neutrophils Not Reportable Absolute Lymphocytes Not Reportable Absolute Monocytes Not Reportable Absolute Eosinophils Not Reportable Absolute Basophils Not Reportable Carbonic Acid 1.49 H HCO3/H2CO3 Ratio 24:1 ABG pH 7.50 H ABG pCO2 49.4 H ABG pO2 87.5 ABG HCO3 37.2 H ABG O2 Saturation 97.2 ABG Base Excess 12.3 FiO2 35% Sodium 138.4 Potassium 4.6 Chloride 94 L Carbon Dioxide 39 H Anion Gap 5 BUN 32 H Creatinine 0.74 Est GFR ( Amer) > 60 Est GFR (Non-Af Amer) > 60 Glucose 219 H Calcium 9.3 Total Bilirubin 0.6 AST 25 ALT 42 Alkaline Phosphatase 60 Total Protein 5.4 L Albumin 3.0 L 07/11/17 15:21 Blood Blood Culture - Final NO GROWTH IN 5 DAYS 07/11/17 07/11/17 07/12/17 15:21 19:50 02:03 Troponin I 0.045 0.031 0.023 Impressions: Chest/Abdomen CTA 07/11/17 10:19 IMPRESSION: NORMAL CTA OF THE CHEST. NO PULMONARY EMBOLI. Venous Doppler Study 07/11/17 12:18 IMPRESSION: NO EVIDENCE DVT OR SVT IN THE RIGHT LEG. Chest X-Ray 07/16/17 06:00 IMPRESSION: Left basilar discoid atelectasis. Otherwise, no acute disease. Assessment & Plan - Diagnosis (1) Acute respiratory failure with hypoxia and hypercapnia Is this a current diagnosis for this admission?: Yes Plan: Secondary COPD exacerbation S/P Extubated: Patient has been wearing BiPAP as requested and blood gas has improved. Will check ABG in a.m. (2) COPD with exacerbation Is this a current diagnosis for this admission?: Yes Plan: We will continue Levaquin, duo nebs every 6 hours, steroids IV every 12 hours. (3) CO2 narcosis Is this a current diagnosis for this admission?: Yes Plan: S/P Extubated: Resolved. (4) Hyponatremia Is this a current diagnosis for this admission?: Yes Plan: Secondary to Hyperglycemia: Resolved. (5) Delirium Is this a current diagnosis for this admission?: Yes Plan: Secondary CO2 Narcosis S/P Extubated: resolved. (6) Hyperkalemia Is this a current diagnosis for this admission?: Yes Plan: Resolved (7) DM type 2 (diabetes mellitus, type 2) Qualifiers: Diabetes mellitus complication status: with hyperglycemia Is this a current diagnosis for this admission?: Yes Plan: SSI. Will continue Lantus to 60 units subcu daily and and placed on NovoLog 10 units with meals. (8) Atrial fibrillation Qualifiers: Atrial fibrillation type: chronic Qualified Code(s): I48.2 - Chronic atrial fibrillation Is this a current diagnosis for this admission?: Yes Plan: We will continue patient's diltiazem and aspirin. (9) Right leg swelling Is this a current diagnosis for this admission?: Yes Plan: Ultrasound of right lower extremity no evidence of DVT. (10) Hyperlipidemia Is this a current diagnosis for this admission?: Yes Plan: statin (11) Bacteremia Is this a current diagnosis for this admission?: Yes Plan: Peptostreptococcus: Levaquin. Will order repeat blood cultures. (12) DVT prophylaxis Is this a current diagnosis for this admission?: Yes Plan: Heparin - Time Time Spent with patient: 25-34 minutes
[2017-07-17] MEDS: ATORVASTATIN CALCIUM 40 MG TABLET PO SCH (21:29)
[2017-07-18] MEDS: INSULIN LISPRO 100 UNIT/ML 3 ML VIAL SUBCUT PRN ×4 (00:37→17:58)
[2017-07-18] MEDS: IPRATROPIUM/ALBUTEROL 0.5-2.5 MG/3 ML AMPUL NEB SCH ×4 (01:57→19:54)
[2017-07-18] MEDS: HEPARIN SOD (PORCINE) 5,000 UNIT/ML 1 ML SYRINGE SUBCUT SCH ×3 (05:14→21:57)
[2017-07-18] MEDS: DILTIAZEM HCL 60 MG TABLET NG SCH ×3 (05:14→21:57)
[2017-07-18 06:10] LABS: HEMATOCRIT 36.5 % (36.0-47.0); HEMOGLOBIN 11.5 g/dL (12.0-15.5); MEAN CORPUSCULAR HEMOGLOBIN 23.6 pg (27.0-33.4); MEAN CORPUSCULAR HGB CONC 31.4 g/dL (32.0-36.0); MEAN CORPUSCULAR VOLUME 75 fl (80-97); PLATELET COUNT 248 10^3/uL (150-450); RED BLOOD COUNT 4.85 10^6/uL (3.72-5.28); RED CELL DISTRIBUTION WIDTH 16.1 % (11.5-14.0); WHITE BLOOD COUNT 13.2 10^3/uL (4.0-10.5)
[2017-07-18 06:17] LABS: ALANINE AMINOTRANSFERASE 42 U/L (9-52); ALKALINE PHOSPHATASE 57 U/L (38-126); ANION GAP 5 (5-19); ASPARTATE AMINO TRANSFERASE 20 U/L (14-36); BILIRUBIN,DIRECT 0.4 mg/dL (0.0-0.4); BILIRUBIN,TOTAL 0.6 mg/dL (0.2-1.3); BLOOD UREA NITROGEN 31 mg/dL (7-20); CALCIUM 9.1 mg/dL (8.4-10.2); CARBON DIOXIDE 38 mmol/L (22-30); CHLORIDE 94 mmol/L (98-107); GLUCOSE 199 mg/dL (75-110); MAGNESIUM 1.9 mg/dL (1.6-2.3); POTASSIUM 4.4 mmol/L (3.6-5.0); SODIUM 136.9 mmol/L (137-145); TOTAL PROTEIN 5.3 g/dL (6.3-8.2)
[2017-07-18 06:35] LABS: ARTERIAL BLOOD BASE EXCESS 9.9 mmol/L; ARTERIAL BLOOD FIO2 35%; ARTERIAL BLOOD H2CO3 1.31 mmol/L (1.05-1.35); ARTERIAL BLOOD HCO3 33.9 mmol/L (20-26); ARTERIAL BLOOD O2 SATURATION 97.3 % (94-98); ARTERIAL BLOOD PCO2 43.4 mmHg (35-45); ARTERIAL BLOOD PH 7.51 (7.35-7.45); ARTERIAL BLOOD PO2 86.5 mmHg (80-100); ARTERIAL BLOOD TOTAL CO2 35.3 mmol/L (21-25)
[2017-07-18 07:10] LABS: ABSOLUTE LYMPHOCYTES# (MANUAL) 0.4 10^3/uL (0.5-4.7); ABSOLUTE MONOCYTES # (MANUAL) 0.7 10^3/uL (0.1-1.4); ABSOLUTE NEUTROPHILS# (MANUAL) 12.1 10^3/uL (1.7-8.2); BASOPHILS % (MANUAL) 0 % (0-2); EOSINOPHILS % (MANUAL) 0 % (0-6); LYMPHOCYTES % (MANUAL) 3 % (13-45); MONOCYTES % (MANUAL) 5 % (3-13); SEGMENTED NEUTROPHILS % (MAN) 92 % (42-78); TOTAL CELLS COUNTED 100
[2017-07-18 07:12] LABS: POLYCHROMASIA SLIGHT
[2017-07-18 07:13] LABS: ANISOCYTOSIS 1+; HYPOCHROMASIA SLIGHT
[2017-07-18 07:14] LABS: OVALOCYTES 1+; PLATELET COMMENT ADEQUATE
[2017-07-18] MEDS: INSULIN LISPRO 100 UNIT/ML 3 ML VIAL SUBCUT SCH ×3 (08:35→17:58)
[2017-07-18] MEDS: METHYLPREDNISOLONE INJ 125 MG/2 ML SDV IV SCH ×2 (10:14→21:57)
[2017-07-18] MEDS: ASPIRIN 81 MG TABLET, CHEWABLE PO SCH (10:14)
[2017-07-18] MEDS: INSULIN GLARGINE,HUM.REC.ANLOG 1,000 UNIT/10 ML UNIT SUBCUT SCH (10:14)
[2017-07-18] MEDS: LEVOFLOXACIN 750 MG/D5W RTU 750 MG/150 ML RTUPB IV SCH (10:15)
--- NOTE | 2017-07-18 16:51 | PDOC PROGRESS REPORT ---
Subjective Progress Note for:: 07/18/17 Subjective:: The patient is a 72-year-old female with a past medical history significant for atrial fibrillation, hyperlipidemia, hypertension, asthma, and type 2 diabetes mellitus. She was admitted on 07/11/17 for acute respiratory failure with hypercapnia requiring intubation. The has subsequently been extubated and placed on BiPAP supportive therapy. She is seen on morning rounds sitting up to bedside on supplemental oxygen via nasal cannula 3 L/min. the patient is not home O2 dependent. She states that she is breathing easy at present and denies a cough. She has been ambulatory to the restroom without dyspnea on exertion. She denies chest pain, orthopnea, palpitations. She has no questions or concerns at this time. Reason For Visit: CO2 NARCOSIS ACUTE COPD EXACERBATION Physical Exam Vital Signs: Temp Pulse Resp BP Pulse Ox 98.2 F 75 16 138/60 H 98 07/18/17 11:45 07/18/17 13:47 07/18/17 13:44 07/18/17 11:45 07/18/17 11:45 Intake & Output 07/17/17 07/18/17 07/19/17 06:59 06:59 06:59 Intake Total 1574 1388 710 Output Total 1950 1150 500 Balance -376 238 210 Weight 95.4 kg 95.3 kg General appearance: PRESENT: no acute distress, cooperative, well-developed, well-nourished, other - Overweight Head exam: PRESENT: atraumatic, normocephalic Eye exam: PRESENT: conjunctiva pink, EOMI, PERRLA. ABSENT: scleral icterus Ear exam: PRESENT: normal external ear exam Mouth exam: PRESENT: moist, tongue midline Neck exam: ABSENT: carotid bruit, JVD, lymphadenopathy, thyromegaly Respiratory exam: PRESENT: prolonged expiratory phas, rhonchi, symmetrical, unlabored, other - Supplemental oxygen at 3lpm. ABSENT: rales, wheezes Cardiovascular exam: PRESENT: irregular rhythm, +S1, +S2. ABSENT: diastolic murmur, rubs, systolic murmur Pulses: PRESENT: normal dorsalis pedis pul Vascular exam: PRESENT: normal capillary refill GI/Abdominal exam: PRESENT: normal bowel sounds, soft. ABSENT: distended, guarding, mass, organolmegaly, rebound, tenderness Rectal exam: PRESENT: deferred Extremities exam: PRESENT: full ROM. ABSENT: calf tenderness, clubbing, pedal edema Neurological exam: PRESENT: alert, awake, oriented to person, oriented to place , oriented to time, oriented to situation, CN II-XII grossly intact. ABSENT: motor sensory deficit Psychiatric exam: PRESENT: appropriate affect, normal mood. ABSENT: homicidal ideation, suicidal ideation Skin exam: PRESENT: dry, intact, warm. ABSENT: cyanosis, rash Results Laboratory Results: 07/18/17 04:50 07/18/17 04:50 07/18/17 07/18/17 07/18/17 04:50 04:50 06:24 WBC 13.2 H RBC 4.85 Hgb 11.5 L Hct 36.5 MCV 75 L MCH 23.6 L MCHC 31.4 L RDW 16.1 H Plt Count 248 Seg Neutrophils % Not Reportable Lymphocytes % Not Reportable Monocytes % Not Reportable Eosinophils % Not Reportable Basophils % Not Reportable Absolute Neutrophils Not Reportable Absolute Lymphocytes Not Reportable Absolute Monocytes Not Reportable Absolute Eosinophils Not Reportable Absolute Basophils Not Reportable Carbonic Acid 1.31 HCO3/H2CO3 Ratio 25:1 ABG pH 7.51 H ABG pCO2 43.4 ABG pO2 86.5 ABG HCO3 33.9 H ABG O2 Saturation 97.3 ABG Base Excess 9.9 FiO2 35% Sodium 136.9 L Potassium 4.4 Chloride 94 L Carbon Dioxide 38 H Anion Gap 5 BUN 31 H Creatinine 0.72 Est GFR ( Amer) > 60 Est GFR (Non-Af Amer) > 60 Glucose 199 H Calcium 9.1 Magnesium 1.9 Total Bilirubin 0.6 AST 20 ALT 42 Alkaline Phosphatase 57 Total Protein 5.3 L Albumin 3.0 L 07/11/17 15:21 Blood Blood Culture - Final NO GROWTH IN 5 DAYS 07/11/17 07/11/17 07/12/17 15:21 19:50 02:03 Troponin I 0.045 0.031 0.023 Impressions: Chest/Abdomen CTA 07/11/17 10:19 IMPRESSION: NORMAL CTA OF THE CHEST. NO PULMONARY EMBOLI. Venous Doppler Study 07/11/17 12:18 IMPRESSION: NO EVIDENCE DVT OR SVT IN THE RIGHT LEG. Chest X-Ray 07/16/17 06:00 IMPRESSION: Left basilar discoid atelectasis. Otherwise, no acute disease. Assessment & Plan - Diagnosis (1) Acute respiratory failure with hypoxia and hypercapnia Is this a current diagnosis for this admission?: Yes Plan: Secondary to COPD exacerbation now extubated. The patient is encouraged to wear BiPAP nightly and as needed with supplemental oxygen to maintain oxygen saturations greater than 88%. Repeat ABG this morning demonstrates metabolic alkalosis with downward trend of bicarb. We will continue DuoNeb treatments every 6 hours. Continue Levaquin; currently day 6 of 7. Continue IV steroids; anticipate the patient will be stable enough to begin weaning process tomorrow. Encourage ambulation, incentive spirometry, and flutter valve. (2) COPD with exacerbation Is this a current diagnosis for this admission?: Yes Plan: Plan as above. (3) Atrial fibrillation Qualifiers: Atrial fibrillation type: chronic Qualified Code(s): I48.2 - Chronic atrial fibrillation Is this a current diagnosis for this admission?: Yes Plan: Continue the patient's home dose diltiazem and daily aspirin. (4) DM type 2 (diabetes mellitus, type 2) Qualifiers: Diabetes mellitus complication status: with hyperglycemia Is this a current diagnosis for this admission?: Yes Plan: The patient was placed on a consistent carb diet. Accu-Cheks before meals and at bedtime. Lantus 60 units daily with 10 units of Humalog at meals with sliding scale protocol. (5) Hyperlipidemia Is this a current diagnosis for this admission?: Yes Plan: Continue statin therapy. (6) Right leg swelling Is this a current diagnosis for this admission?: Yes Plan: Ultrasound of the right lower extremity did not demonstrate evidence of a DVT. Continue heparin for DVT prophylaxis. (7) CO2 narcosis Is this a current diagnosis for this admission?: Yes Plan: Resolved. (8) Delirium Is this a current diagnosis for this admission?: Yes Plan: Secondary to CO2 narcosis; now resolved. (9) Hyperkalemia Is this a current diagnosis for this admission?: Yes Plan: Resolved. (10) Hyponatremia Is this a current diagnosis for this admission?: Yes Plan: Resolved. - Time Time Spent with patient: 35 or more minutes Medications reviewed and adjusted accordingly: Yes Anticipated discharge: Home
[2017-07-18] MEDS: ATORVASTATIN CALCIUM 40 MG TABLET PO SCH (21:58)
[2017-07-19] MEDS: IPRATROPIUM/ALBUTEROL 0.5-2.5 MG/3 ML AMPUL NEB SCH ×4 (02:20→21:43)
[2017-07-19] MEDS: HEPARIN SOD (PORCINE) 5,000 UNIT/ML 1 ML SYRINGE SUBCUT SCH ×3 (05:05→21:21)
[2017-07-19] MEDS: DILTIAZEM HCL 60 MG TABLET NG SCH ×3 (05:05→21:21)
[2017-07-19 06:20] LABS: HEMATOCRIT 37.8 % (36.0-47.0); HEMOGLOBIN 11.6 g/dL (12.0-15.5); MEAN CORPUSCULAR HEMOGLOBIN 23.4 pg (27.0-33.4); MEAN CORPUSCULAR HGB CONC 30.8 g/dL (32.0-36.0); MEAN CORPUSCULAR VOLUME 76 fl (80-97); PLATELET COUNT 264 10^3/uL (150-450); RED BLOOD COUNT 4.99 10^6/uL (3.72-5.28); RED CELL DISTRIBUTION WIDTH 16.2 % (11.5-14.0); WHITE BLOOD COUNT 14.7 10^3/uL (4.0-10.5)
[2017-07-19 06:21] LABS: ANION GAP 5 (5-19); BLOOD UREA NITROGEN 31 mg/dL (7-20); CALCIUM 9.1 mg/dL (8.4-10.2); CARBON DIOXIDE 35 mmol/L (22-30); CHLORIDE 95 mmol/L (98-107); GLUCOSE 221 mg/dL (75-110); POTASSIUM 4.4 mmol/L (3.6-5.0); SODIUM 134.9 mmol/L (137-145)
[2017-07-19 06:44] LABS: ABSOLUTE LYMPHOCYTES# (MANUAL) 0.6 10^3/uL (0.5-4.7); ABSOLUTE MONOCYTES # (MANUAL) 0.3 10^3/uL (0.1-1.4); ABSOLUTE NEUTROPHILS# (MANUAL) 13.8 10^3/uL (1.7-8.2); BASOPHILS % (MANUAL) 0 % (0-2); EOSINOPHILS % (MANUAL) 0 % (0-6); LYMPHOCYTES % (MANUAL) 4 % (13-45); MONOCYTES % (MANUAL) 2 % (3-13); SEGMENTED NEUTROPHILS % (MAN) 94 % (42-78); TOTAL CELLS COUNTED 100
[2017-07-19 06:46] LABS: ANISOCYTOSIS 1+; BURR CELLS SLIGHT; OVALOCYTES SLIGHT; POIKILOCYTOSIS 1+; SCHISTOCYTES 1+; TOXIC GRANULATION 1+
[2017-07-19 06:47] LABS: PLATELET COMMENT ADEQUATE; PLATELET LARGE PRESENT
[2017-07-19] MEDS: INSULIN GLARGINE,HUM.REC.ANLOG 1,000 UNIT/10 ML UNIT SUBCUT SCH (09:26)
[2017-07-19] MEDS: ASPIRIN 81 MG TABLET, CHEWABLE PO SCH (09:26)
[2017-07-19] MEDS: METHYLPREDNISOLONE INJ 125 MG/2 ML SDV IV SCH (09:28)
[2017-07-19] MEDS: INSULIN LISPRO 100 UNIT/ML 3 ML VIAL SUBCUT PRN ×3 (10:20→17:57)
[2017-07-19] MEDS: INSULIN LISPRO 100 UNIT/ML 3 ML VIAL SUBCUT SCH ×3 (10:20→17:57)
--- NOTE | 2017-07-19 12:01 | PDOC PROGRESS REPORT ---
Subjective Progress Note for:: 07/19/17 Subjective:: The patient is a 72-year-old female with a past medical history significant for atrial fibrillation, hyperlipidemia, hypertension, asthma, and type 2 diabetes mellitus. She was admitted on 07/11/17 for acute respiratory failure with hypercapnia requiring intubation. The has subsequently been extubated and placed on BiPAP and supportive therapy. She is seen on morning rounds sitting up to bedside on supplemental oxygen via nasal cannula 3 L/min. The patient is not home O2 dependent. She states that her breathing continues to improve and denies cough, dyspnea, orthopnea, chest pain, and palpitations. Concern today is her diet, stating that she is frustrated with the low-sodium recommendations. Otherwise, she has no questions or concerns at this time. Reason For Visit: CO2 NARCOSIS ACUTE COPD EXACERBATION Physical Exam Vital Signs: Temp Pulse Resp BP Pulse Ox 98.6 F 80 18 140/69 H 96 07/19/17 11:37 07/19/17 11:37 07/19/17 11:37 07/19/17 11:37 07/19/17 11:37 Intake & Output 07/18/17 07/19/17 07/20/17 06:59 06:59 06:59 Intake Total 1388 1455 375 Output Total 1150 500 Balance 238 955 375 Weight 95.3 kg 93.5 kg General appearance: PRESENT: no acute distress, well-developed, well-nourished, other - Overweight Head exam: PRESENT: atraumatic, normocephalic Eye exam: PRESENT: conjunctiva pink, EOMI, PERRLA. ABSENT: scleral icterus Ear exam: PRESENT: normal external ear exam Mouth exam: PRESENT: moist, tongue midline Neck exam: ABSENT: carotid bruit, JVD, lymphadenopathy, thyromegaly Respiratory exam: PRESENT: rhonchi, symmetrical, unlabored, other - Supplemental oxygen at 3 L/min. ABSENT: rales, wheezes Cardiovascular exam: PRESENT: irregular rhythm, +S1, +S2. ABSENT: diastolic murmur, rubs, systolic murmur Pulses: PRESENT: normal dorsalis pedis pul Vascular exam: PRESENT: normal capillary refill GI/Abdominal exam: PRESENT: normal bowel sounds, soft. ABSENT: distended, guarding, mass, organolmegaly, rebound, tenderness Rectal exam: PRESENT: deferred Extremities exam: PRESENT: full ROM. ABSENT: calf tenderness, clubbing, pedal edema Neurological exam: PRESENT: alert, awake, oriented to person, oriented to place , oriented to time, oriented to situation, CN II-XII grossly intact. ABSENT: motor sensory deficit Psychiatric exam: PRESENT: appropriate affect, normal mood. ABSENT: homicidal ideation, suicidal ideation Skin exam: PRESENT: dry, intact, warm. ABSENT: cyanosis, rash Results Laboratory Results: 07/19/17 05:16 07/19/17 05:16 07/19/17 07/19/17 05:16 05:16 WBC 14.7 H RBC 4.99 Hgb 11.6 L Hct 37.8 MCV 76 L MCH 23.4 L MCHC 30.8 L RDW 16.2 H Plt Count 264 Seg Neutrophils % Not Reportable Lymphocytes % Not Reportable Monocytes % Not Reportable Eosinophils % Not Reportable Basophils % Not Reportable Absolute Neutrophils Not Reportable Absolute Lymphocytes Not Reportable Absolute Monocytes Not Reportable Absolute Eosinophils Not Reportable Absolute Basophils Not Reportable Sodium 134.9 L Potassium 4.4 Chloride 95 L Carbon Dioxide 35 H Anion Gap 5 BUN 31 H Creatinine 0.67 Est GFR ( Amer) > 60 Est GFR (Non-Af Amer) > 60 Glucose 221 H Calcium 9.1 07/11/17 07/11/17 07/12/17 15:21 19:50 02:03 Troponin I 0.045 0.031 0.023 Impressions: Chest/Abdomen CTA 07/11/17 10:19 IMPRESSION: NORMAL CTA OF THE CHEST. NO PULMONARY EMBOLI. Venous Doppler Study 07/11/17 12:18 IMPRESSION: NO EVIDENCE DVT OR SVT IN THE RIGHT LEG. Chest X-Ray 07/16/17 06:00 IMPRESSION: Left basilar discoid atelectasis. Otherwise, no acute disease. Assessment & Plan - Diagnosis (1) Acute respiratory failure with hypoxia and hypercapnia Is this a current diagnosis for this admission?: Yes Plan: Continued improvements. Secondary to COPD exacerbation now extubated. The patient is encouraged to wear BiPAP nightly and as needed with supplemental oxygen to maintain oxygen saturations greater than 88%. Bicarb is noted to be trending downward. We will continue DuoNeb treatments every 6 hours. Completed Levaquin today. We will begin weaning IV steroids. Will ask nursing to attempt to wean oxygen today. Encourage ambulation, incentive spirometry, and flutter valve. (2) COPD with exacerbation Is this a current diagnosis for this admission?: Yes Plan: Plan as above. (3) Atrial fibrillation Qualifiers: Atrial fibrillation type: chronic Qualified Code(s): I48.2 - Chronic atrial fibrillation Is this a current diagnosis for this admission?: Yes Plan: Continue the patient's home dose diltiazem and daily aspirin. (4) DM type 2 (diabetes mellitus, type 2) Qualifiers: Diabetes mellitus complication status: with hyperglycemia Is this a current diagnosis for this admission?: Yes Plan: The patient was placed on a consistent carb diet. Accu-Cheks before meals and at bedtime. Lantus 60 units daily with 10 units of Humalog at meals with sliding scale protocol. (5) Hyperlipidemia Is this a current diagnosis for this admission?: Yes Plan: Continue statin therapy. (6) Right leg swelling Is this a current diagnosis for this admission?: Yes Plan: Ultrasound of the right lower extremity did not demonstrate evidence of a DVT. Continue heparin for DVT prophylaxis. (7) CO2 narcosis Is this a current diagnosis for this admission?: Yes Plan: Resolved. (8) Delirium Is this a current diagnosis for this admission?: Yes Plan: Secondary to CO2 narcosis; now resolved. (9) Hyperkalemia Is this a current diagnosis for this admission?: Yes Plan: Resolved. (10) Hyponatremia Is this a current diagnosis for this admission?: Yes Plan: Resolved. - Time Time Spent with patient: 25-34 minutes Anticipated discharge: Home Within: within 36 hours
[2017-07-19] MEDS: DOCUSATE SODIUM 100 MG CAPSULE PO PRN (19:33)
[2017-07-19] MEDS: METHYLPREDNISOLONE INJ 40 MG/1 ML SDV IV SCH (21:20)
[2017-07-19] MEDS: ATORVASTATIN CALCIUM 40 MG TABLET PO SCH (21:38)
[2017-07-20] MEDS: IPRATROPIUM/ALBUTEROL 0.5-2.5 MG/3 ML AMPUL NEB SCH ×4 (01:56→20:16)
[2017-07-20] MEDS: HEPARIN SOD (PORCINE) 5,000 UNIT/ML 1 ML SYRINGE SUBCUT SCH ×3 (05:08→21:56)
[2017-07-20] MEDS: DILTIAZEM HCL 60 MG TABLET NG SCH ×3 (05:12→21:56)
[2017-07-20 06:14] LABS: HEMATOCRIT 36.3 % (36.0-47.0); HEMOGLOBIN 11.6 g/dL (12.0-15.5); MEAN CORPUSCULAR HEMOGLOBIN 24.1 pg (27.0-33.4); MEAN CORPUSCULAR VOLUME 76 fl (80-97); PLATELET COUNT 247 10^3/uL (150-450); RED BLOOD COUNT 4.81 10^6/uL (3.72-5.28); RED CELL DISTRIBUTION WIDTH 16.1 % (11.5-14.0); WHITE BLOOD COUNT 14.3 10^3/uL (4.0-10.5)
[2017-07-20 06:35] LABS: ANION GAP 5 (5-19); BLOOD UREA NITROGEN 33 mg/dL (7-20); CARBON DIOXIDE 35 mmol/L (22-30); CHLORIDE 95 mmol/L (98-107); GLUCOSE 245 mg/dL (75-110); POTASSIUM 4.5 mmol/L (3.6-5.0); SODIUM 135.3 mmol/L (137-145)
[2017-07-20] MEDS: INSULIN LISPRO 100 UNIT/ML 3 ML VIAL SUBCUT SCH ×3 (08:05→18:15)
[2017-07-20] MEDS: INSULIN LISPRO 100 UNIT/ML 3 ML VIAL SUBCUT PRN ×4 (08:05→23:01)
[2017-07-20] MEDS: DOCUSATE SODIUM 100 MG CAPSULE PO PRN (10:11)
[2017-07-20] MEDS: ASPIRIN 81 MG TABLET, CHEWABLE PO SCH (10:11)
[2017-07-20] MEDS: INSULIN GLARGINE,HUM.REC.ANLOG 1,000 UNIT/10 ML UNIT SUBCUT SCH (10:12)
[2017-07-20] MEDS: METHYLPREDNISOLONE INJ 40 MG/1 ML SDV IV SCH (10:12)
--- NOTE | 2017-07-20 11:06 | PDOC PROGRESS REPORT ---
Subjective Progress Note for:: 07/20/17 Subjective:: The patient is a 72-year-old female with a past medical history significant for atrial fibrillation, hyperlipidemia, hypertension, asthma, and type 2 diabetes mellitus. She was admitted on 07/11/17 for acute respiratory failure with hypercapnia requiring intubation. The has subsequently been extubated and placed on BiPAP and supportive therapy. She is seen on morning rounds sitting up to bedside on supplemental oxygen via nasal cannula 3 L/min. The patient is not home O2 dependent. She states that her breathing continues to improve and denies cough, dyspnea, orthopnea, chest pain, and palpitations. She states that she has been ambulatory in the hallways without increased dyspnea, although continues to require supplemental oxygen. She is hopeful to be discharged to home tomorrow. Otherwise, she has no questions or concerns at this time. Reason For Visit: CO2 NARCOSIS ACUTE COPD EXACERBATION Physical Exam Vital Signs: Temp Pulse Resp BP Pulse Ox 98.3 F 81 16 116/66 95 07/20/17 08:00 07/20/17 08:16 07/20/17 08:16 07/20/17 08:00 07/20/17 08:16 Intake & Output 07/19/17 07/20/17 07/21/17 06:59 06:59 06:59 Intake Total 1455 2033 Output Total 500 Balance 955 2033 Weight 93.5 kg 93.8 kg General appearance: PRESENT: no acute distress, well-developed, well-nourished, other - Overweight Head exam: PRESENT: atraumatic, normocephalic Eye exam: PRESENT: conjunctiva pink, EOMI, PERRLA. ABSENT: scleral icterus Ear exam: PRESENT: normal external ear exam Mouth exam: PRESENT: moist, tongue midline Neck exam: ABSENT: carotid bruit, JVD, lymphadenopathy, thyromegaly Respiratory exam: PRESENT: symmetrical, unlabored, wheezes - Right middle expiratory wheezing; otherwise clear, other - Supplemental oxygen via nasal cannula. ABSENT: rales, rhonchi Cardiovascular exam: PRESENT: RRR, +S1, +S2. ABSENT: diastolic murmur, rubs, systolic murmur Pulses: PRESENT: normal dorsalis pedis pul Vascular exam: PRESENT: normal capillary refill GI/Abdominal exam: PRESENT: normal bowel sounds, soft. ABSENT: distended, guarding, mass, organolmegaly, rebound, tenderness Rectal exam: PRESENT: deferred Extremities exam: PRESENT: full ROM. ABSENT: calf tenderness, clubbing, pedal edema Neurological exam: PRESENT: alert, awake, oriented to person, oriented to place , oriented to time, oriented to situation, CN II-XII grossly intact. ABSENT: motor sensory deficit Psychiatric exam: PRESENT: appropriate affect, normal mood. ABSENT: homicidal ideation, suicidal ideation Skin exam: PRESENT: dry, intact, warm. ABSENT: cyanosis, rash Results Laboratory Results: 07/20/17 04:58 07/20/17 04:58 07/20/17 07/20/17 04:58 04:58 WBC 14.3 H RBC 4.81 Hgb 11.6 L Hct 36.3 MCV 76 L MCH 24.1 L MCHC 32.0 RDW 16.1 H Plt Count 247 Sodium 135.3 L Potassium 4.5 Chloride 95 L Carbon Dioxide 35 H Anion Gap 5 BUN 33 H Creatinine 0.66 Est GFR ( Amer) > 60 Est GFR (Non-Af Amer) > 60 Glucose 245 H Calcium 9.0 07/11/17 07/11/17 07/12/17 15:21 19:50 02:03 Troponin I 0.045 0.031 0.023 Impressions: Chest/Abdomen CTA 07/11/17 10:19 IMPRESSION: NORMAL CTA OF THE CHEST. NO PULMONARY EMBOLI. Venous Doppler Study 07/11/17 12:18 IMPRESSION: NO EVIDENCE DVT OR SVT IN THE RIGHT LEG. Chest X-Ray 07/16/17 06:00 IMPRESSION: Left basilar discoid atelectasis. Otherwise, no acute disease. Assessment & Plan - Diagnosis (1) Acute respiratory failure with hypoxia and hypercapnia Is this a current diagnosis for this admission?: Yes Plan: Continued improvements. Secondary to COPD exacerbation now extubated. The patient is encouraged to wear BiPAP nightly and as needed with supplemental oxygen to maintain oxygen saturations greater than 88%. Bicarb is noted to be trending downward. We will continue DuoNeb treatments every 6 hours. Has completed a full course of Levaquin. We will continue weaning IV steroids; anticipate transition to p.o. steroids tomorrow. Will ask nursing to attempt to wean oxygen today. Encourage ambulation, incentive spirometry, and flutter valve. (2) COPD with exacerbation Is this a current diagnosis for this admission?: Yes Plan: The patient does not appear to be on any home maintenance therapies; will start Spiriva. She may also benefit from a lot as such as Serevent at discharge. Plan as above. (3) Atrial fibrillation Qualifiers: Atrial fibrillation type: chronic Qualified Code(s): I48.2 - Chronic atrial fibrillation Is this a current diagnosis for this admission?: Yes Plan: Continue the patient's home dose diltiazem and daily aspirin. (4) DM type 2 (diabetes mellitus, type 2) Qualifiers: Diabetes mellitus complication status: with hyperglycemia Is this a current diagnosis for this admission?: Yes Plan: The patient was placed on a consistent carb diet. Blood glucose is expectedly elevated secondary to steroid therapy. Accu-Cheks before meals and at bedtime. Lantus 60 units daily with 10 units of Humalog at meals with sliding scale protocol. (5) Hyperlipidemia Is this a current diagnosis for this admission?: Yes Plan: Continue statin therapy. (6) Right leg swelling Is this a current diagnosis for this admission?: Yes Plan: Improved; ultrasound of the right lower extremity did not demonstrate evidence of a DVT. Continue heparin for DVT prophylaxis. (7) CO2 narcosis Is this a current diagnosis for this admission?: Yes Plan: Resolved. (8) Delirium Is this a current diagnosis for this admission?: Yes Plan: Secondary to CO2 narcosis; now resolved. (9) Hyperkalemia Is this a current diagnosis for this admission?: Yes Plan: Resolved. (10) Hyponatremia Is this a current diagnosis for this admission?: Yes Plan: Resolved. - Time Time Spent with patient: 25-34 minutes Medications reviewed and adjusted accordingly: Yes Anticipated discharge: Home Within: within 24 hours
[2017-07-20] MEDS ORDERED: METHYLPREDNISOLONE INJ 40 MG/1 ML SDV IV SCH ×2 (14:00→18:00)
[2017-07-20] MEDS: ATORVASTATIN CALCIUM 40 MG TABLET PO SCH (21:56)
[2017-07-21] MEDS: IPRATROPIUM/ALBUTEROL 0.5-2.5 MG/3 ML AMPUL NEB SCH ×2 (01:51→09:16)
[2017-07-21] MEDS: HEPARIN SOD (PORCINE) 5,000 UNIT/ML 1 ML SYRINGE SUBCUT SCH (05:04)
[2017-07-21] MEDS: DILTIAZEM HCL 60 MG TABLET NG SCH (05:04)
[2017-07-21 05:07] LABS: HEMATOCRIT 36.6 % (36.0-47.0); HEMOGLOBIN 11.5 g/dL (12.0-15.5); MEAN CORPUSCULAR HEMOGLOBIN 23.8 pg (27.0-33.4); MEAN CORPUSCULAR HGB CONC 31.5 g/dL (32.0-36.0); MEAN CORPUSCULAR VOLUME 76 fl (80-97); PLATELET COUNT 247 10^3/uL (150-450); RED BLOOD COUNT 4.85 10^6/uL (3.72-5.28); RED CELL DISTRIBUTION WIDTH 16.2 % (11.5-14.0); WHITE BLOOD COUNT 14.8 10^3/uL (4.0-10.5)
[2017-07-21 05:37] LABS: ANION GAP 7 (5-19); BLOOD UREA NITROGEN 34 mg/dL (7-20); CALCIUM 9.2 mg/dL (8.4-10.2); CARBON DIOXIDE 32 mmol/L (22-30); CHLORIDE 97 mmol/L (98-107); GLUCOSE 199 mg/dL (75-110); POTASSIUM 4.4 mmol/L (3.6-5.0); SODIUM 135.6 mmol/L (137-145)
[2017-07-21] MEDS: INSULIN LISPRO 100 UNIT/ML 3 ML VIAL SUBCUT PRN (08:39)
[2017-07-21] MEDS: INSULIN LISPRO 100 UNIT/ML 3 ML VIAL SUBCUT SCH (08:40)
[2017-07-21] MEDS ORDERED: PREDNISONE 20 MG TABLET PO SCH (10:00)
[2017-07-21] MEDS ORDERED: TIOTROPIUM BROMIDE DPI 5 CAP/KIT (18 MCG/CAP) IH SCH (10:00)
[2017-07-21 10:42] VITALS: BP 149/65
--- NOTE | 2017-07-21 12:30 | PDOC DISCHARGE SUMMARY ---
General - Admit/Disc Date/PCP Admission Date/Primary Care Provider: 07/11/17 13:02 LAMIN SAGASTUME NP Discharge Date: 07/21/17 - Discharge Diagnosis (1) Acute respiratory failure with hypoxia and hypercapnia Is this a current diagnosis for this admission?: Yes (2) COPD with exacerbation Is this a current diagnosis for this admission?: Yes (3) Atrial fibrillation Is this a current diagnosis for this admission?: Yes (4) DM type 2 (diabetes mellitus, type 2) Is this a current diagnosis for this admission?: Yes (5) Hyperlipidemia Is this a current diagnosis for this admission?: Yes (6) Right leg swelling Is this a current diagnosis for this admission?: Yes (7) CO2 narcosis Is this a current diagnosis for this admission?: Yes (8) Delirium Is this a current diagnosis for this admission?: Yes (9) Hyperkalemia Is this a current diagnosis for this admission?: Yes (10) Hyponatremia Is this a current diagnosis for this admission?: Yes - Additional Information Resuscitation Status: Full Code Discharge Diet: Cardiac, Diabetic Discharge Activity: Activity As Tolerated, Balance Activity w/Rest, Slowly Increase Activity Prescriptions: Atorvastatin Calcium [Lipitor 40 mg Tablet] 40 mg PO QHS #30 tablet Budesonide/Formoterol Fumarate [Symbicort Hfa 160-4.5 Mcg Inhaler 6 gm] 2 puff IH Q12 #1 inhaler Insulin Glargine,Hum.rec.anlog [Lantus] 60 unit SQ DAILY #3 vial Ipratropium/Albuterol Sulfate [Duoneb 3 ml Ampul] 3 ml NEB RTQ6HP PRN #100 vial.neb PRN Reason: For Wheezing Nebulizer [Nebulizer Machine] 1 each MC ASDIR PRN #1 kit PRN Reason: For Wheezing Prednisone [Deltasone 20 mg Tablet] 20 mg PO ASDIR PRN #10 tablet PRN Reason: Tiotropium Roby [Spiriva Handihaler 18 mcg/dose (30 Dose)] 1 cap IH DAILY # 30 capsule Tiotropium Roby [Spiriva Handihaler 5 Cap/Kit (18 Mcg/Cap)] 1 cap IH DAILY # 1 kit Home Medications: Albuterol Sulfate [Proair Respiclick] 2 puff IH Q4H PRN 09/04/15 Aspirin 81 mg PO DAILY 09/04/15 Diltiazem HCl [Diltiazem 24Hr ER] 360 mg PO DAILY 09/04/15 Docusate Sodium [Colace 100 mg Capsule] 100 mg PO QHS 09/04/15 Epinephrine [Epipen 2-Robb] 0.3 mg IM ASDIR PRN 09/04/15 Glucosamine/MSM/Chondroitin A [Glucosamine Chondroit MSM Tab] 1 each PO BID Loratadine [Claritin 10 mg Tablet] 10 mg PO DAILY 09/04/15 Magnesium Oxide [Mag-Ox 400 mg Tablet] 500 mg PO DAILY 09/04/15 [place]-3 Fatty Acids/Fish Oil [Fish Oil Conc 1,000 mg Softgel] 1 each PO BID Sitagliptin Phos/Metformin HCl [Janumet 50-1,000 mg Tablet] 1 each PO BID Ubidecarenone [Coenzyme Q10] 100 mg PO DAILY 09/04/15 Calcium Carbonate/Vitamin D3 [Calcium 500-Vit D3 200 Caplet] 1 tab-cap PO DAILY 07/11/17 Chlorthalidone [Chlorthalidone 25 mg Tablet] 1 tab PO DAILY 07/11/17 Cholecalciferol (Vitamin D3) [Vitamin D3 1000 Unit Tablet] 1,000 unit PO DAILY 07/11/17 Multivit,Calc,Mins/Folic Acid [One-A-Day Proactive 65 Plus Tb] 200 mcg PO DAILY 07/11/17 Atorvastatin Calcium [Lipitor 40 mg Tablet] 40 mg PO QHS #30 tablet 07/21/17 Budesonide/Formoterol Fumarate [Symbicort Hfa 160-4.5 Mcg Inhaler 6 gm] 2 puff IH Q12 #1 inhaler 07/21/17 Insulin Glargine,Hum.rec.anlog [Lantus] 60 unit SQ DAILY #3 vial 07/21/17 Ipratropium/Albuterol Sulfate [Duoneb 3 ml Ampul] 3 ml NEB RTQ6HP PRN #100 vial.neb 07/21/17 Nebulizer [Nebulizer Machine] 1 each ASDIR PRN #1 kit 07/21/17 Prednisone [Deltasone 20 mg Tablet] 20 mg PO ASDIR PRN #10 tablet 07/21/17 Tiotropium Roby [Spiriva Handihaler 18 mcg/dose (30 Dose)] 1 cap IH DAILY # 30 capsule 07/21/17 Tiotropium Roby [Spiriva Handihaler 5 Cap/Kit (18 Mcg/Cap)] 1 cap IH DAILY # 1 kit 07/21/17 History of Present Illness History of Present Illness: As per H&P by Dr. Loaiza: MEGAN RODRIGUEZ is a 72 year old female who presents with a complaint of confusion and difficulty breathing. Not able to obtain history from patient due to patient being unresponsive. Patient was still sternal rub and would move arms and open eyes. The third time patient with sternal rub patient stated that it hurt. Patient's ER nurse was contacted immediately to find out if this is how the patient has been the whole entire time and the nurse stated that the patient had been drowsy from the beginning however not as drowsy as this. Stat ABG was ordered and ER physician was contacted in regard to the patient's condition. Patient will be admitted to ICU for close observation with pulmonary consult placed will adjust patient's BiPAP settings to see if CO2 will trend down if not patient most likely will require intubation. Unable to obtain history of presenting illness from patient or family. Hospital Course Hospital Course: The patient was admitted on 07/11/17 for acute respiratory failure with hypercapnia secondary to COPD exacerbation that required intubation later that evening. She was evaluated with a chest CTA which did not identify any acute processes or evidence of a pulmonary embolus. The patient also had a complaint of a right lower leg edema; DVT was ruled out by venous Doppler study and over the course of the patient's admission, the edema resolved. The patient was supported with nebulizer treatments, steroid therapy, and empirically placed on Levaquin. She was successfully extubated on the morning of 07/14/17. The patient continued to be BiPAP dependent for the following 2 days, but then was able to wean off of this to room air. She did complete a full course of Levaquin. She was weaned from IV steroids to p.o. prednisone and provided a taper at discharge. Prior to discharge, the patient was stable on room air and ambulatory without dyspnea while on room. She is discharged home in stable condition and is provided prescriptions for atorvastatin, Symbicort, Spiriva, prednisone taper duo nebs, nebulizer machine, and Lantus. She is instructed to follow-up with her primary care provider within 1-2 weeks and is encouraged to stop smoking. Physical Exam Vital Signs: Temp Pulse Resp BP Pulse Ox 97.9 F 70 16 149/65 H 94 07/21/17 10:40 07/21/17 10:40 07/21/17 10:40 07/21/17 10:40 07/21/17 10:40 Intake & Output 07/20/17 07/21/17 07/22/17 06:59 06:59 06:59 Intake Total 2032 1385 Balance 2032 1385 Weight 93.8 kg 94 kg General appearance: PRESENT: no acute distress, well-developed, well-nourished, other - Overweight Head exam: PRESENT: atraumatic, normocephalic Eye exam: PRESENT: conjunctiva pink, EOMI, PERRLA. ABSENT: scleral icterus Ear exam: PRESENT: normal external ear exam Mouth exam: PRESENT: moist, tongue midline Neck exam: ABSENT: carotid bruit, JVD, lymphadenopathy, thyromegaly Respiratory exam: PRESENT: clear to auscultation karthik, rhonchi, symmetrical, unlabored. ABSENT: rales, wheezes Cardiovascular exam: PRESENT: RRR, +S1, +S2. ABSENT: diastolic murmur, rubs, systolic murmur Pulses: PRESENT: normal dorsalis pedis pul Vascular exam: PRESENT: normal capillary refill GI/Abdominal exam: PRESENT: normal bowel sounds, soft. ABSENT: distended, guarding, mass, organolmegaly, rebound, tenderness Rectal exam: PRESENT: deferred Extremities exam: PRESENT: full ROM. ABSENT: calf tenderness, clubbing, pedal edema Neurological exam: PRESENT: alert, awake, oriented to person, oriented to place , oriented to time, oriented to situation, CN II-XII grossly intact. ABSENT: motor sensory deficit Psychiatric exam: PRESENT: appropriate affect, normal mood. ABSENT: homicidal ideation, suicidal ideation Skin exam: PRESENT: dry, intact, warm. ABSENT: cyanosis, rash Results Laboratory Results: 07/21/17 04:37 07/21/17 04:37 07/21/17 07/21/17 04:37 04:37 WBC 14.8 H RBC 4.85 Hgb 11.5 L Hct 36.6 MCV 76 L MCH 23.8 L MCHC 31.5 L RDW 16.2 H Plt Count 247 Sodium 135.6 L Potassium 4.4 Chloride 97 L Carbon Dioxide 32 H Anion Gap 7 BUN 34 H Creatinine 0.63 Est GFR ( Amer) > 60 Est GFR (Non-Af Amer) > 60 Glucose 199 H Calcium 9.2 07/11/17 07/11/17 07/12/17 15:21 19:50 02:03 Troponin I 0.045 0.031 0.023 Impressions: Chest/Abdomen CTA 07/11/17 10:19 IMPRESSION: NORMAL CTA OF THE CHEST. NO PULMONARY EMBOLI. Venous Doppler Study 07/11/17 12:18 IMPRESSION: NO EVIDENCE DVT OR SVT IN THE RIGHT LEG. Chest X-Ray 07/16/17 06:00 IMPRESSION: Left basilar discoid atelectasis. Otherwise, no acute disease. Qualifiers PATEINT BEING DISCHARGED WITH ANY OF THE FOLLOWING DIAGNOSIS?: No
== END 2017-07-21 11:25 | disposition home or self-care (01) | DRG 208 ==
LOC: ER 10:13 → EH 13:02 → UNDOADMIN 13:02 → ICU 07-12 00:25 → 3W 07-15 19:40
PROVIDERS: ADMIT Emergency Medicine; ATTEND Emergency Medicine
PROC: 0BH17EZ Insertion of Endotracheal Airway into Trachea, Via Natural or Artificial Opening (ICD-10-PCS; principal; 2017-07-11)
PROC: 5A1945Z Respiratory Ventilation, 24-96 Consecutive Hours (ICD-10-PCS; 2017-07-11)
DX: J44.1 Chronic obstructive pulmonary disease with (acute) exacerbation (principal); J96.02 Acute respiratory failure with hypercapnia; J96.01 Acute respiratory failure with hypoxia; E87.1 Hypo-osmolality and hyponatremia; R78.81 Bacteremia; E11.65 Type 2 diabetes mellitus with hyperglycemia; I48.2 Chronic atrial fibrillation; E78.00 Pure hypercholesterolemia, unspecified; I10 Essential (primary) hypertension; E87.5 Hyperkalemia; M79.89 Other specified soft tissue disorders; R41.0 Disorientation, unspecified; F17.210 Nicotine dependence, cigarettes, uncomplicated; Z79.4 Long term (current) use of insulin; Z79.51 Long term (current) use of inhaled steroids; Z79.899 Other long term (current) drug therapy
CPT/HCPCS: 36415; 51702; 71045; 71275; 80048; 80053; 81001; 82550; 82553; 82803; 82962; 83036; 83605; 83690; 83735; 83880; 84100; 84439; 84443; 84478; 84484; 85025; 85027; 87040; 87070; 87077; 87086; 87186; 87205; 87804; 93005; 93010; 93971; 94002; 94003; 94640; 94660; 94799; 96365; 96375; 99291; G8978-GP; G8979-GP; J0330; J1644; J1815; J1956; J2704; J2920; J2930; J3475; J3490; J7030; J7620; S0164